=== PATIENT | male | born 1935 | race Caucasian/White ===

== ENCOUNTER → 2017-11-01 | Outpatient (CLI) | payer MEDICARE ==
--- NOTE | 2017-11-01 15:10 | US ---
EXAMINATION TYPE: US kidneys/renal and bladder DATE OF EXAM: 11/01/2017 COMPARISON: NONE CLINICAL HISTORY: R31.9 HEMATURIA. EXAM MEASUREMENTS: Right Kidney: 9.7 x 4.7 x 4.6 cm Left Kidney: 10.7 x 4.8 x 4.5 cm Right Kidney: No hydronephrosis or masses seen Left Kidney: No hydronephrosis or masses seen Bladder: wnl There is no evidence for hydronephrosis at this point in time. No nephrolithiasis is seen. No dano s are identified. The urinary bladder is anechoic. Bilateral ureteral jets are seen. IMPRESSION: No significant abnormality appreciated.
== END | disposition home or self-care (01) ==
LOC: RADUSWWP 14:05
PROVIDERS: ATTEND Internal Medicine
DX: R31.9 Hematuria, unspecified (principal)
CPT/HCPCS: 76770

== ENCOUNTER → 2018-05-08 | Outpatient (CLI) | payer MEDICARE ==
[~2018-05-08] MED LIST: REGADENOSON 0.4 MG/5 ML SYRINGE IV ONE
--- NOTE | 2018-05-08 11:15 | NM ---
EXAMINATION TYPE: NM stress lexiscan cardiolite DATE OF EXAM: 05/08/2018 COMPARISON: NONE HISTORY: Cardiomyopathy TECHNIQUE: After the intravenous administration of 10.1 mCi Tc 99m Sestamibi - Cardiolite resting SP ECT images acquired 45 minutes post injection. The patient received 0.4mg Lexiscan, 25.8 mCi Tc 99m Sestamibi - Stress images obtained [address] injection FINDINGS: Review of stress and rest SPECT images demonstrates no distinct perfusion abnormality. Gated analysi s shows normal wall motion with an estimated left ventricular ejection fraction of 56 %. IMPRESSION: No scintigraphic evidence for reversible ischemia.
--- NOTE | 2018-05-08 11:44 | EST ---
EXERCISE STRESS DATE OF SERVICE: 05/08/2018 AGE: 83 SEX: Male HT: 5'11" WT: 160 pounds PROTOCOL: Lexiscan Cardiolite STAGE: DURATION OF EXERCISE: HEART RATE REST: 49 BLOOD PRESSURE REST: 143/57 MAXIMUM HEART RATE ACHIEVED: 71 MAXIMUM BLOOD PRESSURE: 153/54 85% MPHR: 116 100% MPHR: 137 METS: INDICATIONS: Chest discomfort. CLINICAL INFORMATION: STRESS DATA: Pretesting physical examination showed heart rate of 49, pressure is 143/57 mmHg. Baseline EKG showed sinus mechanism with LBBB. A 0.4 mg of Lexiscan was given over 15 seconds per protocol. Max heart rate was 71 beats per minute and maximum pressure was 153/54 mmHg. Clinically, the patient did not have any symptoms of chest pain or discomfort and the EKG did not show any significant ST or T-wave abnormalities concerning for ischemia. CONCLUSION: 1. Nondiagnostic electrocardiogram stress testing in response to Lexiscan. 2. Please follow up on the Cardiolite portion on separate report from radiology department. MMODL / IJN: [id number] /
== END | disposition home or self-care (01) ==
LOC: RADNMMAIN 08:06
PROVIDERS: ATTEND Internal Medicine
DX: I42.9 Cardiomyopathy, unspecified (principal)
CPT/HCPCS: 93017; 78452; A9500; J2785

== ENCOUNTER → 2018-07-03 | Outpatient (CLI) | payer MEDICARE ==
[2018-07-03 15:10] LABS: Appearance,Urine Clear (Clear); Bilirubin,Urine Negative (Negative); Blood,Urine Negative (Negative); Color,Urine Yellow; Glucose,Urine (UA) Negative (Negative); HGB 12.6 gm/dL (13.0-17.5); Ketones,Urine Negative (Negative); Leukocyte Esterase,Urine Negative (Negative); MCH 31.8 pg (25.0-35.0); MCHC 32.3 g/dL (31.0-37.0); MCV 98.6 fL (80.0-100.0); Mean Platelet Volume 7.7; Nitrite,Urine Negative (Negative); Platelet Count 284 k/uL (150-450); Protein,Urine Negative (Negative); RBC 3.95 m/uL (4.30-5.90); RDW 12.7 % (11.5-15.5); Specific Gravity,Urine 1.012 (1.001-1.035); Urobilinogen,Urine <2.0 mg/dL (<2.0)
[2018-07-03 15:19] LABS: Albumin 4.3 g/dL (3.5-5.0); Calcium 9.6 mg/dL (8.4-10.2); Total Bilirubin 0.3 mg/dL (0.2-1.3); Total Protein 7.2 g/dL (6.3-8.2)
[2018-07-03 15:23] LABS: Partial Thromboplastin Time 23.4 sec (22.0-30.0)
== END ==
LOC: LABPAT 13:46
PROVIDERS: ATTEND Orthopaedic Surgery Sports Medicine
DX: Z01.818 Encounter for other preprocedural examination (principal); Z01.812 Encounter for preprocedural laboratory examination; Z79.01 Long term (current) use of anticoagulants
CPT/HCPCS: 36415; 80053; 81003; 85027; 85610; 85730; 87070; 93005

== ENCOUNTER 2018-07-27 10:44 | Inpatient (IN) | payer MEDICARE ==
[2018-07-07 16:29] VITALS: BMI 23.6
[~2018-07-27 10:44] MED LIST changes: +DEXAMETHASONE SOD PHOSPHATE 10 MG/ML 1 ML VIAL IV ONE; +HYDROmorphone 0.5 MG/0.5 ML SYRINGE IVP PRN; +MELOXICAM 7.5 MG TAB PO ONE; +ONDANSETRON 4 MG/2 ML VIAL IVP ONE; -REGADENOSON 0.4 MG/5 ML SYRINGE IV ONE; +ROPIVACAINE 246.25 MG, EPINEPHrine 0.5 MG, KETOROLAC 30 MG, cloNIDine HCL/PF 80 MCG, WA... MISCELLANE ONE; +TRANEXAMIC ACID 1,000 MG in SODIUM CHLORIDE 0.9% 50 ML IVPB ONE; +ceFAZolin IN SWFI 2 GM/20 ML SYRINGE IVP ONE; +fentaNYL (PF) 50 MCG/ML 2 ML AMP IV PRN
[2018-07-27] MEDS: LACTATED RINGERS 1,000 ML IV SCH ×3 (13:01→18:16)
[2018-07-27] MEDS ORDERED: ACETAMINOPHEN TAB 500 MG TAB PO ONE (13:15)
[2018-07-27] MEDS ORDERED: GLYCOPYRROLATE 0.2 MG/ML 2 ML VIAL ONE (13:49)
[2018-07-27] MEDS ORDERED: fentaNYL (PF) 50 MCG/ML 2 ML AMP ONE (13:49)
[2018-07-27] MEDS ORDERED: ePHEDrine SULFATE/0.9% NACL/PF 50 MG/5 ML SYRINGE IV ONE (13:49)
[2018-07-27] MEDS ORDERED: MORPHINE SULFATE (PF) 0.3 MG/0.3 ML SYR ONE (13:49)
[2018-07-27] MEDS ORDERED: ceFAZolin 3,000 MG in SODIUM CHLORIDE 0.9% IRRIGATIO 3,000 ML IRRIGATION ONE (14:22)
[2018-07-27] MEDS ORDERED: HYDROmorphone 1 MG/ML 1 ML SYRINGE IVP PRN ×3 (15:59)
[2018-07-27] MEDS ORDERED: TEMAZEPAM 15 MG CAP PO PRN (15:59)
[2018-07-27] MEDS ORDERED: ACETAMINOPHEN TAB 325 MG TAB PO PRN (15:59)
[2018-07-27] MEDS ORDERED: NALOXONE 0.4 MG/ML 1 ML VIAL IV PRN (15:59)
[2018-07-27] MEDS ORDERED: HYDROcodone/APAP 5-325MG 1 EACH TAB PO PRN (15:59)
[2018-07-27] MEDS ORDERED: DIAZEPAM 5 MG TAB PO PRN (15:59)
[2018-07-27] MEDS ORDERED: NA PHOS,M-B/NA PHOS,DI-BA 133 ML ENEMA RECTAL PRN (15:59)
[2018-07-27] MEDS ORDERED: BISACODYL 10 MG SUPP RECTAL PRN (15:59)
[2018-07-27] MEDS ORDERED: ONDANSETRON 4 MG/2 ML VIAL IVP PRN (15:59)
[2018-07-27] MEDS ORDERED: traMADol 50 MG TAB PO PRN (15:59)
[2018-07-27] MEDS ORDERED: HYDROcodone/APAP 10-325MG 1 EACH TAB PO PRN (15:59)
[2018-07-27] MEDS ORDERED: MAGNESIUM HYDROXIDE 2,400 MG/10 ML CUP PO PRN (15:59)
[2018-07-27] MEDS ORDERED: hydrOXYzine PAMOATE 25 MG CAP PO PRN (15:59)
[2018-07-27] MEDS ORDERED: HYDROcodone/APAP 7.5-325MG 1 EACH TAB PO PRN (15:59)
--- NOTE | 2018-07-27 16:29 | XR ---
EXAMINATION TYPE: XR knee limited RT DATE OF EXAM: 07/27/2018 COMPARISON: 02/18/2009 HISTORY: Postop knee replacement TECHNIQUE: 2 view right knee FINDINGS: Tibial and femoral components have been placed. Postsurgical changes are within the soft ti ssues. No acute fractures are evident. IMPRESSION: 1. No fracture post knee replacement.
[2018-07-27] MEDS: HYDROcodone/APAP 5-325MG 1 EACH TAB PO PRN (18:13)
[2018-07-27 18:19] VITALS: RESP 16; TEMP 97.8
[2018-07-27] MEDS ORDERED: SENNOSIDES-DOCUSATE SODIUM 1 EACH TAB PO SCH (21:00)
--- NOTE | 2018-07-27 21:19 | OP ---
OPERATIVE REPORT DATE OF PROCEDURE: 07/27/2018. SURGEON: Kayden Lockwood MD. CONDUIT CLEANER: JESSICA Rodríguez. PREOPERATIVE DIAGNOSIS: Right knee osteoarthrosis. POSTOPERATIVE DIAGNOSIS: Right knee osteoarthrosis. OPERATION: Right total knee arthroplasty. ANESTHESIA: Spinal with sedation. ESTIMATED BLOOD LOSS: 100 mL. TOURNIQUET TIME: 58 minutes at 250 mmHg. COMPLICATIONS: None apparent. DRAINS: None. DISPOSITION: Postanesthesia care unit. INDICATIONS: Tejinder is a very pleasant 83-year-old male with longstanding history of right knee pain. History and physical examination are consistent with advanced right knee osteoarthrosis. He has been through a fairly significant course of nonoperative management up to this point. Further treatment options were discussed and he decided to go for the right total knee arthroplasty. The risks of procedure were discussed in detail. These risks include, but are not limited to risk of infection, nerve damage, bleeding, pain, and a small risk of deep vein thrombosis which could lead to fatal pulmonary embolism. There is also risk of loosening of the implant which could require revision operation. The patient understands these risks. All of his questions were answered to his satisfaction. Appropriate informed consent was obtained. DESCRIPTION OF PROCEDURE: The patient identified in the preoperative holding area. Surgical sites marked by both the patient and myself. He was given 2 g of Ancef IV for prophylactic purposes. He was then transported to the operative suite. He was placed supine on the operative table. Spinal anesthetic was then administered and dosed per the anesthesia without apparent complication. Examination under anesthesia was then performed. The patient was 3-5 degrees shy of full extension. He had 95 degrees of flexion of the medial collateral ligament. Lateral collateral ligament and posterior cruciate ligaments were stable. Tourniquet was then placed high on the right upper thigh well-padded in preparation for surgery. The patient's right lower extremity was then prepped and draped in usual sterile fashion. Standard surgical pause undertaken to ensure that we were operating the correct site and that appropriate preoperative antibiotics were given. All staff were in agreement we proceeded. The outlines of the patella were marked surgical pen. A planned 12 cm vertical incision centered over the patella was marked surgical pen. Leg was then exsanguinated with an Esmarch dressing. The knee was then flexed and the tourniquet was inflated to 250 mmHg. The total tourniquet time for the procedure was 58 minutes Incision was then made with a 10 blade scalpel. Dissection was carried down sharply overlying fascia. Great care was taken to minimize the skin flaps. The knee was then exposed using a standard medial parapatellar approach. A small cuff of quadriceps tendon was then left for suturing. He was in a bit of valgus preoperatively. A very minimal medial release was made. This was done just for a placement of the medial retractors. The medial meniscus was then excised as well. The lateral meniscus was also released anteriorly. Leg was then externally rotated. The patella was everted. The knee was flexed. The retractors were then placed to protect the collateral ligaments. I then proceeded to remove the infrapatellar fat pad. This was excised sharply tangentially with fibers of the patellar tendon. I then proceeded to remove peripheral osteophytes. This is done with a rongeur. I then proceeded with distal femoral resection. He did have a flexion contracture. I planned to take an extra 2 mm of bone off of the distal femur. A planned 11 mm resection was then done. The femoral canal was then entered in the midline of the femur approximately 10 mm anterior and to the origin of the posterior cruciate ligament. The lois was then advanced down the center of the femur and placed intramedullary. Based on preoperative radiographs, the angle between the anatomic and mechanical axis of the femur was approximately 4-5 degrees. The valgus angle the distal femoral cutting guide was then set at 4 degrees for the right knee. The distal femoral cutting guide was then advanced over the intramedullary lois. This was seated firmly against the femur. I then as mentioned planned to take 11 mm off the distal femur. The cutting block was then secured onto the femur with pins. The jig was then removed. The distal femoral cut was made through the slot of the block. The pins then were then removed. The distal femoral cutting block was removed. The accuracy of the distal femoral cuts was checked with 2 flat bars. I then proceed to femoral sizing. Posterior referencing sizing guide was held firmly against the resected distal surface of the femur. The posterior condyles were resting on the posterior plane of the guide. The sizing stylus was then placed onto the anterior femur. The size was measured as a size 10. I then assessed for femoral rotation. Plan was for 3 degrees of external rotation. Three degrees external rotation was placed onto the jig. These holes were then marked. I then confirmed the rotation by 3 separate methods. This was done using epicondylar axis as well as [place] line and posterior referencing. It was deemed that the external rotation was proper. I then went forward with placing the femoral cutting block. This placed over the previously placed pin holes. The Boyd wing was then placed onto the anterior slots to ensure that we would not notch the anterior femur with the anterior femoral cut. I then proceed with the anterior femoral cut. This was flush with the anterior cortex of the femur. Posterior cuts were then made followed by the anterior chamfer cut, then the posterior chamfer cut. The cutting block was then removed. Throughout the resection, the collateral ligaments were protected with retractors. I then placed a trial size 10 femur. It fit very nicely medial to lateral and fit flush with the distal end of the femur. The drill holes were then made. I then proceeded with the tibial cut. I planned for cruciate retaining knee. The guide was placed and set for varus valgus and for slope. The height was set for approximate 2 mm resection from the lateral tibial plateau which was the lower side. I was happy with the alignment and the amount of resection. The cutting block was then pinned to the proximal tibia. The alignment lois was removed. The proximal tibia was resected with a reciprocating saw. Again this was done with retractors protecting the collateral ligaments as well as the posterior cruciate ligament. I then proceeded to evaluate the flexion and extension gaps. A 10 mm block was placed. The flexion-extension gaps were equal. I then proceeded with resection of posterior osteophytes. Very extensive posterior osteophytes. This is done using a curved osteotome. This resected the posterior osteophytes and posterior capsule stripping was also done off the posterior aspect of the femur at this time. The osteophytes were then removed. I then proceeded with resection of the patella. The thickness of the patella was measured using a caliper. The thickness was 22 mm. The thickness of the anticipated patellar dome was taken into account. Resection was then performed and confirmed to be equal in 4 quadrants using a caliper. Approximately 14 mm of bone remained after the resection. A 32 x 8.5 mm standard patellar trial was then placed. The holes were drilled. The trial was then placed. I then proceed with sizing tibial plate. A size F tibial plate fit very nicely. I then placed the trial femur the tibial tray and patellar button. A 10 mm trial tibial insert was also placed. The components fit very nicely. He had full extension and flexion. The extension and flexion gaps were equal and stable to both varus and valgus stress. The patella tracked appropriately. The tibial tray rotation was then marked with a Bovie. This was externally rotated properly. I then proceeded with tibial preparation. I first drilled the femoral holes removed femoral component. The tibial tray was then set for proper external rotation as well as mediolateral placement onto the tibia. It was then pinned into place. I then proceed with punching the keel. I then decided to proceed with cementing of all of our components. The knee was thoroughly irrigated with sterile saline solution via pulse lavage. The lateral geniculate artery was identified and cauterized. All blood was removed from the bone of the tibia, the femur and the patella via pulse lavage. I then proceed with cementing. Two packs of antibiotic bone cement prepared on the back table by the neurosurgical nurse. I then put some to proceed with cementing the tibia first. The cement was impacted into the keel as well as deeply seated into the bone. A second coat of cement was then placed. The tibia was then impacted into place. Excess cement was removed with [place]'s and Joker's. I then proceed with cementing the femoral component. The femoral component was also cemented using standard technique. Excess cement was removed. A 10 mm trial insert was then placed into the knee and was brought into full extension with a constant axial load placed until the cement had hardened. The patellar component was then cemented. This was held firmly with a compressive device until the cement had dried. When the cement had dried, the knee was taken out of extension. All excess cement was removed from around the prosthesis. I then trialed the knee with an 10 mm insert. I then proceeded to trial with an 11 mm insert. The flexion-extension gaps felt appropriate. The knee was stable with an 11 mm insert. It came into full extension. I decided to go forward with an 11 mm cross-linked cruciate-retaining tibial insert. Polyethylene was then placed onto the tibial tray and locked into place. The knee was then reduced. The knee was again further irrigated with sterile saline solution with antibiotic added. The tourniquet was then deflated. The total tourniquet time for the procedure was 58 minutes at 250 mmHg. Final components were Gerry Persona size 10 cruciate-retaining femoral component, a size F tibial tray and 11 mm cruciate-retaining polyethylene insert and a 32 x 8.5 mm patella. I then proceeded with closure. Again, the knee was thoroughly irrigated. The quadriceps tendon and the medial retinaculum were reapproximated with #2 Ethibond suture. The extensor mechanism was then closed with a running #2 Quill suture. Subcutaneous tissues were then closed with 2 Vicryl suture. The skin was closed with running 3-0 Quill suture. Dermabond was applied to the incision. Sterile compressive dressing was then applied. All sponge and needle counts were deemed correct prior to closure. The patient tolerated the procedure without apparent complication. He was transferred recovery room in stable condition. MMODL / IJN: [id number] /
[2018-07-27] MEDS: ASPIRIN 325 MG TAB PO SCH (21:39)
[2018-07-27] MEDS: ceFAZolin IN SWFI 2 GM/20 ML SYRINGE IVP SCH (21:40)
[2018-07-28] MEDS: HYDROcodone/APAP 5-325MG 1 EACH TAB PO PRN (04:48)
[2018-07-28] MEDS: ceFAZolin IN SWFI 2 GM/20 ML SYRINGE IVP SCH (05:06)
[2018-07-28] MEDS: LACTATED RINGERS 1,000 ML IV SCH (07:03)
--- NOTE | 2018-07-28 07:11 | P.DS ---
Providers Date of admission: 07/27/18 12:18 Expected date of discharge: 07/28/18 Attending physician: Kayden Lockwood Consults: 07/27/18 15:59 Consult Physician Routine Consulting Provider: Laurent Burns Consult Reason/Comments: post op medical management Do you want consulting provider notified?: Yes Primary care physician: Laurent Burns - Discharge Diagnosis(es) (1) Osteoarthritis, knee Patient was admitted to the OR on 07/27/2018 to undergo a right total knee arthroplasty. He had failed conservative measures as an outpatient and desired to proceed with elective surgery after given informed consent. He underwent the above procedure which he tolerated well without complication. Postoperative hospital course has remained without complication. On day of discharge he is afebrile, vital signs stable, labs within acceptable ranges, tolerating by mouth meds and diet, voiding without difficulty, positive flatus, denies abdominal pain or calf pain, pain is controlled on oral pain medication and has no new complaints. Wound is benign, neurovascular status is intact, calf is soft and nontender, abdomen soft and nontender. Review of systems is negative for numbness, tingling, fever, chills, chest pain, shortness breath, nausea, vomiting, dizziness, headaches, slurred speech or other. Current Visit: Yes Status: Acute (2) Hypertension Current Visit: Yes Status: Acute Procedures: Right TKA Patient Condition at Discharge: Good Plan - Discharge Summary Discharge Rx Participant: Yes New Discharge Prescriptions: New Aspirin 325 mg PO BID #60 tab Docusate [Colace] 100 mg PO BID #60 capsule HYDROcodone/APAP 5-325MG [Erin 5-325] 1 tab PO Q4HR PRN #42 tab PRN Reason: Pain No Action amLODIPine [Norvasc] 2.5 mg PO BID Multivitamins, Thera [Multivitamin (formulary)] 1 tab PO DAILY Aspirin 325 mg PO DAILY Metoprolol Tartrate [Lopressor] 25 mg PO BID Enalapril Maleate [Vasotec] 20 mg PO BID Torsemide [Demadex] 10 mg PO MOWEFRSA Ergocalciferol [Vitamin D2] 50,000 unit PO Q7D Potassium Chloride [K-Tab ER] 10 meq PO MOFR Acetaminophen [Tylenol Extra Strength] 1,000 mg PO Q6H PRN PRN Reason: Pain Aricept 23mg 23 mg PO DAILY Discharge Medication List Acetaminophen [Tylenol Extra Strength] 1,000 mg PO Q6H PRN 07/07/18 [History] Aspirin 325 mg PO DAILY 07/07/18 [History] Enalapril Maleate [Vasotec] 20 mg PO BID 07/07/18 [History] Ergocalciferol [Vitamin D2] 50,000 unit PO Q7D 07/07/18 [History] Metoprolol Tartrate [Lopressor] 25 mg PO BID 07/07/18 [History] Multivitamins, Thera [Multivitamin (formulary)] 1 tab PO DAILY 07/07/18 [History ] Potassium Chloride [K-Tab ER] 10 meq PO MOFR 07/07/18 [History] Torsemide [Demadex] 10 mg PO MOWEFRSA 07/07/18 [History] amLODIPine [Norvasc] 2.5 mg PO BID 07/07/18 [History] Aricept 23mg 23 mg PO DAILY 07/27/18 [History] Aspirin 325 mg PO BID #60 tab 07/28/18 [Rx] Docusate [Colace] 100 mg PO BID #60 capsule 07/28/18 [Rx] HYDROcodone/APAP 5-325MG [Erin 5-325] 1 tab PO Q4HR PRN #42 tab 07/28/18 [Rx] Follow up Appointment(s)/Referral(s): Kayden Lockwood MD [STAFF PHYSICIAN] - 1 Week Activity/Diet/Wound Care/Special Instructions: WBAT Take meds as directed F/U with Dr. Lockwood in office Keep wound clean and dry may shower in 72 hrs if no bleeding Discharge Disposition: HOME WITH HOME HEALTH SERVICES
[2018-07-28 07:21] LABS: Basophils % (A) 0 %; Eosinophils % (A) 0 %; HGB 10.8 gm/dL (13.0-17.5); Lymphocytes # (A) 0.8 k/uL (1.0-4.8); Lymphocytes % (A) 5 %; MCH 32.1 pg (25.0-35.0); MCHC 31.8 g/dL (31.0-37.0); Mean Platelet Volume 7.5; Monocytes % (A) 6 %; Neutrophils # (A) 13.7 k/uL (1.3-7.7); Neutrophils % (A) 88 %; Platelet Count 235 k/uL (150-450); RBC 3.37 m/uL (4.30-5.90); RDW 12.5 % (11.5-15.5); WBC 15.7 k/uL (3.8-10.6)
[2018-07-28 08:12] VITALS: BP 119/56; PULSE 79
[2018-07-28] MEDS ORDERED: POTASSIUM CHLORIDE ER 10 MEQ TAB.ER.PRT PO SCH (09:00)
[2018-07-28] MEDS ORDERED: METOPROLOL TARTRATE 25 MG TAB PO SCH (09:00)
[2018-07-28] MEDS ORDERED: LISINOPRIL 20 MG TAB PO SCH (09:00)
[2018-07-28] MEDS ORDERED: TORSEMIDE 20 MG TAB PO SCH (09:00)
[2018-07-28] MEDS ORDERED: DONEPEZIL 10 MG TAB PO SCH (09:00)
[2018-07-28] MEDS ORDERED: amLODIPine 2.5 MG TAB PO SCH (09:00)
[2018-07-28] MEDS: ASPIRIN 325 MG TAB PO SCH (09:01)
[2018-07-28] MEDS ORDERED: TAMSULOSIN 0.4 MG CAP.ER.24H PO SCH (11:00)
[2018-07-28] MEDS ORDERED: MULTIVITAMINS, THERA 1 EACH TAB PO SCH (12:00)
[2018-07-28] MEDS ORDERED: HYDROmorphone 2 MG TAB PO PRN ×3 (12:03→12:04)
--- NOTE | 2018-07-28 14:31 | P.CONS ---
History of Present Illness - Reason for Consult Consult date: 07/28/18 Medical management - History of Present Illness This is an 83-year-old male patient of Dr. Burns with past medical history of glaucoma, hypertension, lower extremity edema, short-term memory loss with vascular dementia, osteoarthritis. Patient has been brought in under the care of Dr. Lockwood status post right total knee arthroplasty. Patient has had no nausea, vomiting, lightheadedness, dizziness, chest pain or shortness of breath. Patient has had urinary retention and required straight cath to times of the second one being 300 mL removed. The patient requires a third straight cath, Saha catheter to be placed by nursing. Patient will be started on Flomax. Patient does have a sitter at the bedside. Review of Systems All systems: negative Constitutional: Denies chills, Denies fever Eyes: denies blurred vision, denies pain Ears, nose, mouth and throat: Denies headache, Denies sore throat Cardiovascular: Denies chest pain, Denies shortness of breath Respiratory: Denies cough Gastrointestinal: Denies abdominal pain, Denies diarrhea, Denies nausea, Denies vomiting Musculoskeletal: Denies myalgias Integumentary: Denies pruritus, Denies rash Neurological: Denies numbness, Denies weakness Psychiatric: Denies anxiety, Denies depression Endocrine: Denies fatigue, Denies weight change Past Medical History Past Medical History: Eye Disorder, Hypertension, Memory Impairment, Osteoarthritis (OA) Additional Past Medical History / Comment(s): HX GLAUCOMA. HX EDEMA ANKLES. SHORT TERM MEMORY LOSS, "VASCULAR DEMENTIA, PER DRRoyal" History of Any Multi-Drug Resistant Organisms: None Reported Additional Past Surgical History / Comment(s): NASAL PROCEDURE. CATARACTS STANISLAW. GLAUCOMA SURGERY ST[place]ISLAW Past Anesthesia/Blood Transfusion Reactions: No Reported Reaction Past Psychological History: No Psychological Hx Reported Smoking Status: Former smoker Past Alcohol Use History: Daily Additional Past Alcohol Use History / Comment(s): SMOKED IN PAST, QUIT 1987 OR PRIOR. COUPLE BEERS RARELY. PATIENT WAS ALONE AT [facility]. Past Drug Use History: None Reported - Past Family History Father Family Medical History: Cancer Additional Family Medical History / Comment(s): PROSTATE Medications and Allergies Home Medications Medication Instructions Recorded Confirmed Type Acetaminophen [Tylenol Extra 1,000 mg PO Q6H PRN 07/07/18 07/27/18 History Strength] Enalapril Maleate [Vasotec] 20 mg PO BID 07/07/18 07/27/18 History Ergocalciferol [Vitamin D2 50,000 unit PO Q7D 07/07/18 07/27/18 History (DRISDOL)] Metoprolol Tartrate [Lopressor] 25 mg PO BID 07/07/18 07/27/18 History Multivitamins, Thera [Multivitamin 1 tab PO DAILY 07/07/18 07/27/18 History (formulary)] Potassium Chloride [K-Tab ER] 10 meq PO MOFR 07/07/18 07/27/18 History Torsemide [Demadex] 10 mg PO MOWEFRSA 07/07/18 07/27/18 History amLODIPine [Norvasc] 2.5 mg PO BID 07/07/18 07/27/18 History Aricept 23mg 23 mg PO DAILY 07/27/18 07/27/18 History Acetaminophen Tab [Tylenol] 650 mg PO Q4HR PRN tab 07/28/18 Rx Aspirin 325 mg PO BID #60 tab 07/28/18 Rx Docusate [Colace] 100 mg PO BID #60 capsule 07/28/18 Rx HYDROcodone/APAP 5-325MG [[place] 1 tab PO Q4HR PRN #42 tab 07/28/18 Rx 5-325] Tamsulosin [Flomax] 0.4 mg PO [id number] cap.er.24h 07/28/18 Rx Allergies Allergy/AdvReac Type Severity Reaction Status Date / Time Sulfa (Sulfonamide Allergy Unknown Verified 07/27/18 17:59 Antibiotics) Childhood Physical Exam Vitals: Vital Signs Temp Pulse Pulse Resp BP Pulse Ox 07/28/18 07:58 79 16 119/56 98 07/27/18 19:00 72 128/76 07/27/18 18:45 48 L 106/52 07/27/18 18:30 54 L 110/51 07/27/18 18:15 49 L 107/61 07/27/18 18:00 60 80/45 07/27/18 17:45 72 102/54 07/27/18 17:30 62 101/55 07/27/18 17:15 97.8 F 52 L 16 116/53 97 07/27/18 16:45 58 L 18 98/51 95 07/27/18 16:30 51 L 18 98/50 94 L 07/27/18 16:15 56 L 18 101/58 97 07/27/18 15:57 96.8 F L 74 16 114/56 100 Intake and Output 07/27/18 07/28/18 07/28/18 22:59 06:59 14:59 Intake Total 320 250 578 Output Total 100 1100 784 Balance 220 -850 -206 Intake: IV 200 Intake, IV Titration 250 Amount Lactated Ringers 1,000 ml 250 @ 75 mls/hr IV .[id number] [facility] Rx#:[id number] Oral 120 578 Output: Urine 1100 300 Straight 300 Post Void Residual 484 Estimated Blood Loss 100 Other: Weight 72.575 kg Gen: This is a 83-year-old male. He is sitting up in bed and appears to be comfortable and in no acute distress. HEENT: Head is atraumatic, normocephalic. Pupils equal, round. Sclerae is anicteric. NECK: Supple. No JVD. No lymphadenopathy. No thyromegaly. LUNGS: Clear to auscultation. No wheezes or rhonchi. No intercostal retractions. HEART: Regular rate and rhythm. No murmur. ABDOMEN: Soft. Bowel sounds are present. No masses. No tenderness. EXTREMITIES: No pedal edema. No calf tenderness. Small dressing in place to the right knee. No breakthrough bleeding or drainage. NEUROLOGICAL: Patient is awake, alert and oriented x1, pleasantly confused. Cranial nerves 2 through 12 are grossly intact. Results CBC & Chem 7: 07/28/18 06:22 Labs: Abnormal Lab Results - Last 24 Hours (Table) 07/28/18 Range/Units 06:22 WBC 15.7 H (3.8-10.6) k/uL RBC 3.37 L (4.30-5.90) m/uL Hgb 10.8 L (13.0-17.5) gm/dL Hct 34.0 L (39.0-53.0) % MCV 101.0 H (80.0-100.0) fL Neutrophils # 13.7 H (1.3-7.7) k/uL Lymphocytes # 0.8 L (1.0-4.8) k/uL Assessment and Plan Plan: 1. Osteoarthritis status post right total knee arthroplasty. Continue PT, OT, pain control per orthopedics. Patient is on aspirin for DVT prophylaxis. 2. Anemia, most likely vitamin B12 deficiency. Not worked up in the hospital. Patient will be placed on ferrous sulfate one daily for 30 days. 3. Urinary retention requiring straight cath. Start Flomax 0.4 mg daily. 4. Hypertension. Continue Lopressor 25 mg twice daily, Demadex 10 mg Tuesday, potassium. 5. Glaucoma, stable. 6. Vascular dementia, stable. Discharge plan: [place] under the care of Dr. John Impression and plan of care have been directed as dictated by the signing physician. Tamara Mendez nurse practitioner acting as scribe for signing physician.
== END 2018-07-28 14:56 | DRG 470 ==
LOC: 2ORMAIN 12:18 → 4SSUR 16:46
PROVIDERS: ADMIT Orthopaedic Surgery Sports Medicine; ATTEND Orthopaedic Surgery Sports Medicine
PROC: 0SRC0J9 Replacement of Right Knee Joint with Synthetic Substitute, Cemented, Open Approach (ICD-10-PCS; principal; 2018-07-27 14:10)
DX: M17.11 Unilateral primary osteoarthritis, right knee (principal); H40.9 Unspecified glaucoma; F01.50 Vascular dementia, unspecified severity, without behavioral disturbance, psychotic disturbance, mood disturbance, and anxiety; I12.9 Hypertensive chronic kidney disease with stage 1 through stage 4 chronic kidney disease, or unspecified chronic kidney disease; N18.2 Chronic kidney disease, stage 2 (mild); D51.9 Vitamin B12 deficiency anemia, unspecified; R33.9 Retention of urine, unspecified; Z79.82 Long term (current) use of aspirin; Z79.899 Other long term (current) drug therapy; Z87.891 Personal history of nicotine dependence; Z88.2 Allergy status to sulfonamides; Z98.42 Cataract extraction status, left eye; Z98.41 Cataract extraction status, right eye
CPT/HCPCS: 85025; 88300

== ENCOUNTER 2018-10-10 11:17 | Inpatient (IN) | payer MEDICARE ==
--- NOTE | 2018-10-10 12:06 | ED ---
General Adult HPI - General Chief complaint: Weakness Stated complaint: confusion Time Seen by Provider: 10/10/18 11:20 Source: patient, family, RN notes reviewed Mode of arrival: wheelchair Limitations: altered mental status - History of Present Illness Initial comments: This is an 83-year-old male who presents emergency Department with family. They stated that the staff there thought he was more confused than normal and he was weaker. Did not notice focal weakness he just seemed weaker altogether on both legs. Patient himself has no complaints. Patient has some dementia underlying but the family states he does not seem to be as quickly responsive as he normally is. According to the facility he does have a low-grade fever but no exact temperature was given. Patient has not had any recent cough or shortness of breath. Patient has no abdominal pain. Patient has no nausea or vomiting. Patient denies headache patient denies numbness weakness. Patient denies lightheadedness or dizziness. Patient has a touch more swelling to both legs. Patient denies any chest pain patient denies any abdominal pain. Patient denies any recent trauma or injury - Related Data Home Medications Medication Instructions Recorded Confirmed Acetaminophen [Tylenol Extra 1,000 mg PO BID 07/07/18 10/10/18 Strength] Enalapril Maleate [Vasotec] 20 mg PO BID 07/07/18 10/10/18 Ergocalciferol [Vitamin D2 50,000 unit PO Q14D 07/07/18 10/10/18 (DRISDOL)] Metoprolol Tartrate [Lopressor] 25 mg PO BID 07/07/18 10/10/18 Multivitamins, Thera [Multivitamin 1 tab PO DAILY 07/07/18 10/10/18 (formulary)] Potassium Chloride [K-Tab ER] 10 meq PO MOFR 07/07/18 10/10/18 Torsemide [Demadex] 10 mg PO [id number] 07/07/18 10/10/18 amLODIPine [Norvasc] 2.5 mg PO BID 07/07/18 10/10/18 Aricept 23mg 23 mg PO HS 07/27/18 10/10/18 Aspirin 325 mg PO HS 10/10/18 10/10/18 Ferrous Sulfate [Feosol] 325 mg PO BID 10/10/18 10/10/18 Loratadine [Claritin] 10 mg PO DAILY 10/10/18 10/10/18 Previous Rx's Medication Instructions Recorded Docusate [Colace] 100 mg PO BID #60 capsule 07/28/18 Tamsulosin [Flomax] 0.4 mg PO [id number] cap.er.24h 07/28/18 Allergies Allergy/AdvReac Type Severity Reaction Status Date / Time Sulfa (Sulfonamide Allergy Unknown Verified 10/10/18 11:44 Antibiotics) Childhood Review of Systems ROS Statement: Those systems with pertinent positive or pertinent negative responses have been documented in the HPI. ROS Other: All systems not noted in ROS Statement are negative. Past Medical History Past Medical History: Eye Disorder, Hypertension, Memory Impairment, Osteoarthritis (OA) Additional Past Medical History / Comment(s): HX GLAUCOMA. HX EDEMA ANKLES. SHORT TERM MEMORY LOSS, "VASCULAR DEMENTIA, PER " History of Any Multi-Drug Resistant Organisms: None Reported Additional Past Surgical History / Comment(s): NASAL PROCEDURE. CATARACTS STANISLAW. GLAUCOMA SURGERY STANISLAW Past Anesthesia/Blood Transfusion Reactions: No Reported Reaction Past Psychological History: No Psychological Hx Reported Smoking Status: Former smoker Past Alcohol Use History: Daily Past Drug Use History: None Reported - Past Family History Father Family Medical History: Cancer Additional Family Medical History / Comment(s): PROSTATE General Exam - General Exam Comments Initial Comments: GENERAL: Patient is well-developed and well-nourished. Patient is nontoxic and well- hydrated and is in no acute distress. Patient does seem very tired but is arousable and answers some basic questions accurately and follows a sick directions accurately. Family states he is slower response than normal. ENT: Neck is soft and supple. No significant lymphadenopathy is noted. Oropharynx is clear. Moist mucous membranes. Neck has full range of motion without eliciting any pain. EYES: The sclera were anicteric and conjunctiva were pink and moist. Extraocular movements were intact and pupils were equal round and reactive to light. Eyelids were unremarkable. PULMONARY: Unlabored respirations. Good breath sounds bilaterally. No audible rales rhonchi or wheezing was noted. CARDIOVASCULAR: There is a regular rate and rhythm without any murmurs gallops or rubs. ABDOMEN: Soft and nontender with normal bowel sounds. No palpable organomegaly was noted. There is no palpable pulsatile mass. SKIN: Skin is clear with no lesions or rashes and otherwise unremarkable. NEUROLOGIC: Patient is alert and oriented 1. Cranial nerves II through XII are grossly intact. Motor and sensory are also intact. Normal speech, volume and content. Symmetrical smile. MUSCULOSKELETAL: Normal extremities with adequate strength and full range of motion. LYMPHATICS: No significant lymphadenopathy is noted PSYCHIATRIC: Normal psychiatric evaluation. Limitations: altered mental status Course Vital Signs 10/10/18 10/10/18 10/10/18 11:22 11:35 11:40 Temperature 99.1 F 99.4 F Pulse Rate 60 Respiratory 18 Rate Blood Pressure 114/58 107/51 O2 Sat by Pulse 99 96 96 Oximetry 10/10/18 10/10/18 10/10/18 11:50 12:00 12:10 Temperature Pulse Rate Respiratory Rate Blood Pressure 107/51 107/51 99/47 O2 Sat by Pulse 97 94 L 95 Oximetry 10/10/18 10/10/18 10/10/18 12:20 12:30 12:40 Temperature Pulse Rate Respiratory Rate Blood Pressure 99/47 99/47 92/47 O2 Sat by Pulse 96 60 L 95 Oximetry Medical Decision Making - Medical Decision Making EKG shows sinus bradycardia 56 bpm NV interval 280 QRSs 152 QT interval 454 QTC is 438. Patient's EKG shows a left bundle branch block. Chest x-ray shows no acute abnormality. I started the patient on Tamiflu emergency department for the influenza Spoke with Dr. Valenzuela she agreed to admit the patient admitted the patient I wrote admitting orders. - Lab Data Result diagrams: 10/10/18 12:24 10/10/18 12:24 Lab Results 10/10/18 10/10/18 10/10/18 Range/Units 12:24 12:24 12:24 WBC 7.4 (3.8-10.6) k/uL RBC 3.65 L (4.30-5.90) m/uL Hgb 11.3 L (13.0-17.5) gm/dL Hct 35.6 L (39.0-53.0) % MCV 97.7 (80.0-100.0) fL MCH 31.1 (25.0-35.0) pg MCHC 31.8 (31.0-37.0) g/dL RDW 13.1 (11.5-15.5) % Plt Count 255 (150-450) k/uL Neutrophils % 87 % Lymphocytes % 5 % Monocytes % 6 % Eosinophils % 0 % Basophils % 0 % Neutrophils # 6.5 (1.3-7.7) k/uL Lymphocytes # 0.4 L (1.0-4.8) k/uL Monocytes # 0.5 (0-1.0) k/uL Eosinophils # 0.0 (0-0.7) k/uL Basophils # 0.0 (0-0.2) k/uL PT (9.0-12.0) sec INR (<1.2) APTT (22.0-30.0) sec Sodium 142 (137-145) mmol/L Potassium 5.3 H (3.5-5.1) mmol/L Chloride 111 H (98-107) mmol/L Carbon Dioxide 23 (22-30) mmol/L Anion Gap 8 mmol/L BUN 37 H (9-20) mg/dL Creatinine 1.33 H (0.66-1.25) mg/dL Est GFR (CKD-EPI)AfAm 57 (>60 ml/min/1.73 sqM) Est GFR (CKD-EPI)NonAf 49 (>60 ml/min/1.73 sqM) Glucose 115 H (74-99) mg/dL Plasma Lactic Acid Renny 1.4 (0.7-2.0) mmol/L Calcium 9.5 (8.4-10.2) mg/dL Total Bilirubin 0.3 (0.2-1.3) mg/dL AST 36 (17-59) U/L ALT 28 (21-72) U/L Alkaline Phosphatase 52 (38-126) U/L Troponin I (0.000-0.034) ng/mL Total Protein 6.7 (6.3-8.2) g/dL Albumin 4.0 (3.5-5.0) g/dL Urine Color Urine Appearance (Clear) Urine pH (5.0-8.0) Ur Specific [place] (1.001-1.035) Urine Protein (Negative) Urine Glucose (UA) (Negative) Urine Ketones (Negative) Urine Blood (Negative) Urine Nitrite (Negative) Urine Bilirubin (Negative) Urine Urobilinogen (<2.0) mg/dL Ur Leukocyte Esterase (Negative) Urine WBC (0-5) /hpf Hyaline Casts (0-2) /lpf Influenza Type A RNA (Not Detectd) Influenza Type B (PCR) (Not Detectd) 10/10/18 10/10/18 10/10/18 Range/Units 12:24 12:24 12:35 WBC (3.8-10.6) k/uL RBC (4.30-5.90) m/uL Hgb (13.0-17.5) gm/dL Hct (39.0-53.0) % MCV (80.0-100.0) fL MCH (25.0-35.0) pg MCHC (31.0-37.0) g/dL RDW (11.5-15.5) % Plt Count (150-450) k/uL Neutrophils % % Lymphocytes % % Monocytes % % Eosinophils % % Basophils % % Neutrophils # (1.3-7.7) k/uL Lymphocytes # (1.0-4.8) k/uL Monocytes # (0-1.0) k/uL Eosinophils # (0-0.7) k/uL Basophils # (0-0.2) k/uL PT 10.0 (9.0-12.0) sec INR 0.9 (<1.2) APTT 22.5 (22.0-30.0) sec Sodium (137-145) mmol/L Potassium (3.5-5.1) mmol/L Chloride (98-107) mmol/L Carbon Dioxide (22-30) mmol/L Anion Gap mmol/L BUN (9-20) mg/dL Creatinine (0.66-1.25) mg/dL Est GFR (CKD-EPI)AfAm (>60 ml/min/1.73 sqM) Est GFR (CKD-EPI)NonAf (>60 ml/min/1.73 sqM) Glucose (74-99) mg/dL Plasma Lactic Acid Renny (0.7-2.0) mmol/L Calcium (8.4-10.2) mg/dL Total Bilirubin (0.2-1.3) mg/dL AST (17-59) U/L ALT (21-72) U/L Alkaline Phosphatase (38-126) U/L Troponin I 0.105 H* (0.000-0.034) ng/mL Total Protein (6.3-8.2) g/dL Albumin (3.5-5.0) g/dL Urine Color Urine Appearance (Clear) Urine pH (5.0-8.0) Ur Specific [place] (1.001-1.035) Urine Protein (Negative) Urine Glucose (UA) (Negative) Urine Ketones (Negative) Urine Blood (Negative) Urine Nitrite (Negative) Urine Bilirubin (Negative) Urine Urobilinogen (<2.0) mg/dL Ur Leukocyte Esterase (Negative) Urine WBC (0-5) /hpf Hyaline Casts (0-2) /lpf Influenza Type A RNA Detected H (Not Detectd) Influenza Type B (PCR) Not Detected (Not Detectd) 10/10/18 Range/Units 16:00 WBC (3.8-10.6) k/uL RBC (4.30-5.90) m/uL Hgb (13.0-17.5) gm/dL Hct (39.0-53.0) % MCV (80.0-100.0) fL MCH (25.0-35.0) pg MCHC (31.0-37.0) g/dL RDW (11.5-15.5) % Plt Count (150-450) k/uL Neutrophils % % Lymphocytes % % Monocytes % % Eosinophils % % Basophils % % Neutrophils # (1.3-7.7) k/uL Lymphocytes # (1.0-4.8) k/uL Monocytes # (0-1.0) k/uL Eosinophils # (0-0.7) k/uL Basophils # (0-0.2) k/uL PT (9.0-12.0) sec INR (<1.2) APTT (22.0-30.0) sec Sodium (137-145) mmol/L Potassium (3.5-5.1) mmol/L Chloride (98-107) mmol/L Carbon Dioxide (22-30) mmol/L Anion Gap mmol/L BUN (9-20) mg/dL Creatinine (0.66-1.25) mg/dL Est GFR (CKD-EPI)AfAm (>60 ml/min/1.73 sqM) Est GFR (CKD-EPI)NonAf (>60 ml/min/1.73 sqM) Glucose (74-99) mg/dL Plasma Lactic Acid Renny (0.7-2.0) mmol/L Calcium (8.4-10.2) mg/dL Total Bilirubin (0.2-1.3) mg/dL AST (17-59) U/L ALT (21-72) U/L Alkaline Phosphatase (38-126) U/L Troponin I (0.000-0.034) ng/mL Total Protein (6.3-8.2) g/dL Albumin (3.5-5.0) g/dL Urine Color Yellow Urine Appearance Clear (Clear) Urine pH 5.0 (5.0-8.0) Ur Specific [place] 1.015 (1.001-1.035) Urine Protein Trace H (Negative) Urine Glucose (UA) Negative (Negative) Urine Ketones Negative (Negative) Urine Blood Small H (Negative) Urine Nitrite Negative (Negative) Urine Bilirubin Negative (Negative) Urine Urobilinogen <2.0 (<2.0) mg/dL Ur Leukocyte Esterase Negative (Negative) Urine WBC <1 (0-5) /hpf Hyaline Casts 12 H (0-2) /lpf Influenza Type A RNA (Not Detectd) Influenza Type B (PCR) (Not Detectd) Disposition Clinical Impression: Altered mental status, Influenza A Disposition: ADMITTED IP TO THIS [facility] Time of Disposition: 16:25
[2018-10-10 12:48] LABS: Basophils % (A) 0 %; Eosinophils % (A) 0 %; HCT 35.6 % (39.0-53.0); HGB 11.3 gm/dL (13.0-17.5); Lymphocytes # (A) 0.4 k/uL (1.0-4.8); Lymphocytes % (A) 5 %; MCH 31.1 pg (25.0-35.0); MCHC 31.8 g/dL (31.0-37.0); MCV 97.7 fL (80.0-100.0); Mean Platelet Volume 7.6; Monocytes # (A) 0.5 k/uL (0-1.0); Monocytes % (A) 6 %; Neutrophils # (A) 6.5 k/uL (1.3-7.7); Neutrophils % (A) 87 %; Platelet Count 255 k/uL (150-450); RBC 3.65 m/uL (4.30-5.90); RDW 13.1 % (11.5-15.5); WBC 7.4 k/uL (3.8-10.6)
--- NOTE | 2018-10-10 13:00 | XR ---
EXAMINATION TYPE: XR chest 2V DATE OF EXAM: 10/10/2018 COMPARISON: NONE HISTORY: Fever, altered mental status TECHNIQUE: Frontal and lateral views of the chest are obtained. FINDINGS: There are overlying cardiac leads. Coronary artery calcifications are noted. Anterior flowi ng osteophytes along the thoracic spine may be due to diffuse idiopathic skeletal hyperostosis. There is no focal air space opacity, pleural effusion, or pneumothorax seen. Questionable prominence of th e pulmonary artery. The cardiac silhouette size is enlarged. The osseous structures are intact. IMPRESSION: Cardiomegaly and coronary artery disease. Additional findings above.
[2018-10-10 13:03] LABS: Calcium 9.5 mg/dL (8.4-10.2); INR 0.9 (<1.2); Partial Thromboplastin Time 22.5 sec (22.0-30.0); Potassium 5.3 mmol/L (3.5-5.1); Total Bilirubin 0.3 mg/dL (0.2-1.3); Total Protein 6.7 g/dL (6.3-8.2)
[2018-10-10] MEDS ORDERED: OSELTAMIVIR 75 MG CAP PO STA (14:19)
[2018-10-10] MEDS ORDERED: ACETAMINOPHEN TAB 500 MG TAB PO STA (15:48)
[2018-10-10 16:17] LABS: Appearance,Urine Clear (Clear); Bilirubin,Urine Negative (Negative); Blood,Urine Small (Negative); Color,Urine Yellow; Glucose,Urine (UA) Negative (Negative); Hyaline Casts,Urine 12 /lpf (0-2); Ketones,Urine Negative (Negative); Leukocyte Esterase,Urine Negative (Negative); Nitrite,Urine Negative (Negative); Protein,Urine Trace (Negative); Specific Gravity,Urine 1.015 (1.001-1.035); Urobilinogen,Urine <2.0 mg/dL (<2.0); WBC,Urine <1 /hpf (0-5)
[2018-10-10] MEDS ORDERED: SODIUM CHLORIDE 0.9% 1,000 ML IV ONE (16:26)
[2018-10-10 18:10] VITALS: BMI 23.6
[2018-10-10] MEDS: FERROUS SULFATE 325 MG TAB PO SCH (20:56)
[2018-10-10] MEDS: amLODIPine 2.5 MG TAB PO SCH (20:56)
[2018-10-10] MEDS: OSELTAMIVIR 75 MG CAP PO SCH (20:56)
[2018-10-10] MEDS: DONEPEZIL 10 MG TAB PO SCH (20:56)
[2018-10-10] MEDS: METOPROLOL TARTRATE 25 MG TAB PO SCH (20:56)
[2018-10-10] MEDS: DOCUSATE 100 MG CAP PO SCH (20:56)
[2018-10-10] MEDS: LISINOPRIL 20 MG TAB PO SCH (20:56)
[2018-10-11 07:04] LABS: Basophils % (A) 0 %; Eosinophils % (A) 0 %; HCT 31.5 % (39.0-53.0); HGB 10.1 gm/dL (13.0-17.5); Lymphocytes # (A) 0.8 k/uL (1.0-4.8); Lymphocytes % (A) 12 %; MCH 31.6 pg (25.0-35.0); MCV 98.6 fL (80.0-100.0); Mean Platelet Volume 7.6; Monocytes # (A) 0.6 k/uL (0-1.0); Monocytes % (A) 9 %; Neutrophils # (A) 5.4 k/uL (1.3-7.7); Neutrophils % (A) 77 %; Platelet Count 208 k/uL (150-450); RBC 3.19 m/uL (4.30-5.90); RDW 13.1 % (11.5-15.5); WBC 7.1 k/uL (3.8-10.6)
[2018-10-11 07:29] LABS: Albumin 3.3 g/dL (3.5-5.0); Calcium 8.5 mg/dL (8.4-10.2); Potassium 4.5 mmol/L (3.5-5.1); Total Bilirubin 0.3 mg/dL (0.2-1.3); Total Protein 5.6 g/dL (6.3-8.2)
[2018-10-11] MEDS: DOCUSATE 100 MG CAP PO SCH ×2 (10:58→22:18)
[2018-10-11] MEDS: FERROUS SULFATE 325 MG TAB PO SCH ×2 (10:58→22:18)
[2018-10-11] MEDS: METOPROLOL TARTRATE 25 MG TAB PO SCH ×2 (10:58→22:18)
[2018-10-11] MEDS: TAMSULOSIN 0.4 MG CAP.ER.24H PO SCH (10:58)
[2018-10-11] MEDS: LISINOPRIL 20 MG TAB PO SCH ×2 (10:59→22:18)
[2018-10-11] MEDS: TORSEMIDE 20 MG TAB PO SCH (10:59)
[2018-10-11] MEDS: amLODIPine 2.5 MG TAB PO SCH ×2 (10:59→22:18)
[2018-10-11] MEDS: OSELTAMIVIR 75 MG CAP PO SCH ×2 (10:59→22:18)
[2018-10-11] MEDS: ACETAMINOPHEN TAB 325 MG TAB PO PRN ×2 (11:07→22:19)
--- NOTE | 2018-10-11 11:15 | CONS ---
CONSULTATION CHIEF COMPLAINT: Weakness and confusion Tejinder is an 83-year-old gentleman who was found to be weaker and more confused than his usual state. [place] weak in both his legs and was brought into hospital. Patient had a low-grade fever, but has not had any recent cough, shortness of breath, chest pain, or leg edema. He is admitted to hospital with possible diagnosis of influenza and Cardiology is consulted because of abnormal EKG and mildly elevated troponins. His troponin was 0.1, 0.09 and 0.08 and at the time of my evaluation this morning, he appears comfortable at rest, seems pleasantly confused at rest. There is no history of coronary artery disease or congestive heart failure. PAST MEDICAL HISTORY: Significant for hypertension. ALLERGIES: SULFA. FAMILY HISTORY: Negative for premature coronary artery disease. SOCIAL HISTORY: Denies current smoking, EtOH abuse, or drug abuse. REVIEW OF SYSTEMS: HEENT is unremarkable. CARDIAC: As described above. RESPIRATORY: As described above. GI: Negative. GENITOURINARY: Negative. ALLERGY/IMMUNOLOGY: Negative. SKIN: Negative. MUSCULOSKELETAL: Significant for arthritis. PSYCHOSOCIAL: Negative. ENDOCRINE: Negative. DERM: Negative. CONSTITUTIONAL: Negative. ONCOLOGICAL: Negative. Rest of the system review is not relevant. Home medications include Vasotec 20 b.i.d., Lopressor 25 b.i.d. K-Dur 10 q. daily, Demadex 10 four days a week, Norvasc 2.5 b.i.d., Aricept, aspirin, iron, and Claritin. PHYSICAL EXAM: He is comfortable at rest. Vital signs is stable. Chest exam reveals good air entry bilaterally. Heart exam reveals first and second heart sounds. No gallop. No murmur. Abdomen is soft. Examination of the extremities reveals trace edema. Peripheral pulses are palpable. EKG shows sinus rhythm with left bundle branch block. ASSESSMENT: 1. Elevated troponin is not consistent with acute myocardial ischemia. 2. Hypertension. 3. Possible flu. PLAN: I am going to obtain a 2D echo to assess his LV function and wall motion. If these appear normal, no further cardiac workup is needed at this time. When he underlying febrile illness resolves, we may consider doing a stress test if necessary. MMODL / IJN: [id number] /
--- NOTE | 2018-10-11 11:45 | ECHOF ---
Referral Reason:troponin MEASUREMENTS -------- HEIGHT: 177.8 cm WEIGHT: 69.9 kg BP: IVSd: 1.0 cm (0.6 - 1.1) LVIDd: 3.6 cm (3.9 - 5.3) LVPWd: 1.1 cm (0.6 - 1.1) IVSs: 1.3 cm LVIDs: 2.3 cm LVPWs: 1.6 cm Ao Diam: 3.5 cm (2.0 - 3.7) AV Cusp: 1.8 cm (1.5 - 2.6) LA Diam: 2.9 cm (2.7 - 3.8) MV EXCURSION: 16.659 mm (> 18.000) MV EF SLOPE: 42 mm/s (70 - 150) EPSS: 0.9 cm MV E Percy: 0.90 m/s MV DecT: 326 ms MV A Percy: 1.10 m/s MV E/A Ratio: 0.81 AV maxP.70 mmHg AV meanP.53 mmHg RAP: 5.00 mmHg RVSP: 18.23 mmHg FINDINGS -------- Resting bradycardia (HR<60bpm). This was a technically difficult study with suboptimal views. The left ventricular size is normal. There is mild concentric left ventricular hypertrophy. Overa ll left ventricular systolic function is normal with, an EF between 55 - 60 %. The right ventricle is normal in size and function. The left atrium is normal in size. The right atrium is normal in size. Lumason used Aortic valve is trileaflet and is mildly thickened. There is mild aortic valve sclerosis. Peak/me an gradient across the Aortic Valve is 16.70mmHg / 8.53mmHg. Mild mitral regurgitation is present. Mild tricuspid regurgitation present. The right ventricular systolic pressure, as measured by Doppl er, is 18.23mmHg. Pulmonic valve appears structurally normal. The aortic root size is normal. IVC Not well visulized. The pericardium is normal. CONCLUSIONS -------- 1. Resting bradycardia (HR<60bpm). 2. This was a technically difficult study with suboptimal views. 3. The left ventricular size is normal. 4. There is mild concentric left ventricular hypertrophy. 5. The right ventricle is normal in size and function. 6. The left atrium is normal in size. 7. The right atrium is normal in size. 8. Lumason used 9. Aortic valve is trileaflet and is mildly thickened. 10. There is mild aortic valve sclerosis. 11. Peak/mean gradient across the Aortic Valve is 16.70mmHg / 8.53mmHg. 12. Mild mitral regurgitation is present. 13. Mild tricuspid regurgitation present. 14. The right ventricular systolic pressure, as measured by Doppler, is 18.23mmHg. 15. Pulmonic valve appears structurally normal. 16. The aortic root size is normal. 17. IVC Not well visulized. 18. The pericardium is normal. CONSTRUCTION PROJECT ADMINISTRATOR: Jennifer Sosa RDCS
--- NOTE | 2018-10-11 14:46 | P.HPIM ---
History of Present Illness H&P Date: 10/11/18 Chief Complaint: Confusion and weakness falls This is a pleasant 83-year-old gentleman patient of Dr. Burns he has underlying history of glaucoma hypertension, chronic dependent edema and short-term memory loss with vascular dementia, osteoarthritis recently underwent right total knee arthroplasty in July 2018 and was doing well with home therapies. Patient was subsequently seen in emergency room after he felt weak for the past 2 days 3 days, along with low-grade fever, upper respiratory type symptoms, decreased appetite, patient has increasing difficulty in supporting himself, he was subsequently seen in the emergency room with studies significant for influenza A urinalysis is negative except for hyaline cast troponins are mildly elevated 0.09 and 0.087, albumin low at 3.3, creatinine of 0.9 to sodium 141 hemoglobin of 10.1 WBC count of 7.1. Chest x-ray shows cardiomegaly with CAD, no pleural effusion, no pneumonia cardiac silhouette is enlarged diffuse idiopathic skeletal hyperostosis Review of Systems Constitutional: Reports as per HPI, Reports anorexia, Reports chills, Reports daytime sleepiness, Reports fatigue, Reports fever, Reports malaise, Reports night sweats, Reports weakness, Reports weight loss Ears, nose, mouth and throat: Reports as per HPI, Denies ant. neck pain, Denies bleeding gums, Denies dental pain, Denies dysphagia, Denies epistaxis, Denies headache, Denies hoarseness, Denies mouth pain, Denies nasal congestion, Denies nasal discharge, Denies neck fullness/pressure, Denies neck lump, Denies nose pain, Denies odynophagia, Denies post-nasal drip, Denies sinus pain, Denies sinus pressure, Denies swelling in mouth, Denies swelling in throat, Denies sore throat, Denies vertigo, Denies voice changes Cardiovascular: Reports as per HPI, Denies chest pain, Denies claudication, Denies decreased exercise tolerance, Denies dyspnea on exertion, Denies edema, Denies high blood pressure, Denies irregular heart beat, Denies leg edema, Denies lightheadedness, Denies orthopnea, Denies palpitations, Denies paroxysmal nocturnal dyspnea, Denies phlebitis, Denies rapid heart beat, Denies shortness of breath, Denies syncope Respiratory: Reports as per HPI, Reports cough, Denies congestion, Denies cough with sputum, Denies dyspnea, Denies excessive sputum, Denies hemoptysis, Denies home oxygen, Denies pain, Denies pain on inspiration, Denies pleurisy, Denies respiratory infections, Denies sleep apnea, Denies snoring, Denies wheezing Gastrointestinal: Reports as per HPI, Denies abdominal pain, Denies belching, Denies bloating, Denies BRBPR, Denies change in bowel habits, Denies coffee ground emesis, Denies constipation, Denies diarrhea, Denies dyspepsia, Denies early satiety, Denies excessive gas, Denies heartburn, Denies hematemesis, Denies hematochezia, Denies indigestion, Denies jaundice, Denies lactose intolerance, Denies loss of appetite, Denies melena, Denies nausea, Denies vomiting Genitourinary: Reports as per HPI Musculoskeletal: Reports as per HPI, Denies arm numbness/tingling, Denies atrophy, Denies fractures, Denies frequent falls, Denies gait dysfunction, Denies hot joints, Denies leg numbness/tingling, Denies limitation of motion, Denies loss of height, Denies low back pain, Denies morning stiffness, Denies muscle cramps, Denies muscle weakness, Denies myalgias, Denies neck pain, Denies neck stiffness, Denies prior amputations, Denies redness of joints, Denies shooting arm pain, Denies shooting leg pain Neurological: Reports as per HPI, Reports gait dysfunction, Reports memory loss , Reports weakness, Denies aphasia, Denies ataxia, Denies balance difficulties, Denies burning pain, Denies change in mentation, Denies change in smell/taste, Denies change in speech, Denies confusion, Denies convulsions, Denies double vision, Denies head injury, Denies headaches, Denies hearing difficulties, Denies lack of coordination, Denies loss of vision, Denies migraines, Denies motor disturbance, Denies numbness, Denies paralysis, Denies paresthesias, Denies seizures, Denies sensory deficit, Denies spasticity, Denies syncope, Denies tic, Denies tingling, Denies transient paralysis, Denies tremors, Denies vertigo, Denies visual changes Psychiatric: Reports as per HPI, Reports confusion, Reports difficulty concentrating, Reports memory loss, Denies anhedonia, Denies anxiety, Denies anxiety attacks, Denies change in appetite, Denies change in libido, Denies change in sleep habits, Denies depression, Denies disorientation, Denies hallucinations, Denies hopelessness, Denies hypersomnia, Denies insomnia, Denies irritability, Denies mood swings, Denies paranoia, Denies sadness/ tearfulness, Denies sleep disturbances, Denies suicidal ideation Endocrine: Reports as per HPI, Denies cold intolerance, Denies deepening of the voice, Denies excessive sweating, Denies excessive thirst, Denies fatigue, Denies flushing, Denies heat intolerance, Denies high blood sugars, Denies increase in ring/shoe/hat size, Denies low blood sugars, Denies nocturia, Denies palpitations, Denies polydipsia, Denies polyphagia, Denies polyuria, Denies proptosis, Denies recent glucocorticoid use, Denies thyroid mass, Denies weight change Hematologic/Lymphatic: Reports as per HPI, Denies easy bleeding, Denies easy bruising, Denies lymphadenopathy, Denies lymphedema, Denies thrombophilia Allergic/Immunologic: Reports as per HPI, Denies allergic rhinitis, Denies anaphylaxis, Denies angioedema, Denies gluten intolerance, Denies persistent infections, Denies seasonal allergies, Denies urticaria, Denies wheezing Past Medical History Past Medical History: Eye Disorder, Hypertension, Memory Impairment, Osteoarthritis (OA) Additional Past Medical History / Comment(s): HX GLAUCOMA. HX EDEMA ANKLES. SHORT TERM MEMORY LOSS, "VASCULAR DEMENTIA, PER " History of Any Multi-Drug Resistant Organisms: None Reported Additional Past Surgical History / Comment(s): NASAL PROCEDURE. CATARACTS STANISLAW. GLAUCOMA SURGERY [facility]W Past Anesthesia/Blood Transfusion Reactions: No Reported Reaction Past Psychological History: No Psychological Hx Reported Smoking Status: Former smoker Past Alcohol Use History: Daily Additional Past Alcohol Use History / Comment(s): SMOKED IN PAST, QUIT 1987 OR PRIOR. COUPLE BEERS RARELY. PATIENT WAS ALONE AT [facility]. Past Drug Use History: None Reported - Past Family History Father Family Medical History: Cancer Additional Family Medical History / Comment(s): PROSTATE Medications and Allergies Home Medications Medication Instructions Recorded Confirmed Type Acetaminophen [Tylenol Extra 1,000 mg PO BID 07/07/18 10/10/18 History Strength] Enalapril Maleate [Vasotec] 20 mg PO BID 07/07/18 10/10/18 History Ergocalciferol [Vitamin D2 50,000 unit PO Q14D 07/07/18 10/10/18 History (DRISDOL)] Metoprolol Tartrate [Lopressor] 25 mg PO BID 07/07/18 10/10/18 History Multivitamins, Thera [Multivitamin 1 tab PO DAILY 07/07/18 10/10/18 History (formulary)] Potassium Chloride [K-Tab ER] 10 meq PO MOFR 07/07/18 10/10/18 History Torsemide [Demadex] 10 mg PO [id number] 07/07/18 10/10/18 History amLODIPine [Norvasc] 2.5 mg PO BID 07/07/18 10/10/18 History Aricept 23mg 23 mg PO HS 07/27/18 10/10/18 History Docusate [Colace] 100 mg PO BID #60 capsule 07/28/18 10/10/18 Rx Tamsulosin [Flomax] 0.4 mg PO [id number] cap.er.24h 07/28/18 10/10/18 Rx Aspirin 325 mg PO HS 10/10/18 10/10/18 History Ferrous Sulfate [Feosol] 325 mg PO BID 10/10/18 10/10/18 History Loratadine [Claritin] 10 mg PO DAILY 10/10/18 10/10/18 History Allergies Allergy/AdvReac Type Severity Reaction Status Date / Time Sulfa (Sulfonamide Allergy Unknown Verified 10/10/18 11:44 Antibiotics) Childhood Physical Exam Vitals: Vital Signs Temp Pulse Pulse Resp BP BP Pulse Ox 10/11/18 11:26 16 10/11/18 11:08 62 16 123/57 93 L 10/11/18 08:00 73 16 144/58 93 L 10/11/18 03:09 97.2 F L 55 L 18 117/52 94 L 10/10/18 23:42 60 18 111/47 93 L 10/10/18 20:00 97.5 F L 56 L 18 115/50 92 L 10/10/18 17:40 99.8 F H 60 16 141/67 96 10/10/18 17:20 55 L 17 126/60 10/10/18 17:10 54 L 20 126/60 10/10/18 17:00 51 L 17 124/53 10/10/18 16:50 97.8 F 50 L 20 124/53 96 10/10/18 16:40 52 L 18 124/53 97 10/10/18 16:30 49 L 17 133/52 98 10/10/18 16:20 51 L 16 133/52 96 10/10/18 16:10 55 L 16 133/52 97 10/10/18 16:00 62 15 129/55 94 L 10/10/18 15:50 59 L 20 129/55 96 10/10/18 15:40 57 L 19 129/55 96 10/10/18 15:30 56 L 17 130/57 96 10/10/18 15:20 53 L 16 130/57 96 10/10/18 15:10 60 18 130/57 95 10/10/18 15:00 57 L 20 121/52 98 10/10/18 14:50 54 L 17 121/52 10/10/18 14:40 56 L 19 121/52 10/10/18 14:30 58 L 17 103/54 Intake and Output 10/10/18 10/11/18 10/11/18 22:59 06:59 14:59 Intake Total 300 120 Output Total 200 250 Balance 100 -250 120 Intake: IV 300 Sodium Chloride 0.9% 1, 300 000 ml @ 75 mls/hr IV . [id number] ONE Rx#:[id number] Oral 120 Output: Urine 200 250 Other: Voiding Method Toilet Toilet Urinal Urinal # Voids 1 1 2 Weight 72.575 kg 72.5 kg 70 kg - Constitutional General appearance: average body habitus, cooperative, no acute distress - EENT Eyes: anicteric sclerae, EOMI, PERRLA, poor dentition, normal appearance ENT: hard of hearing, NA/AT, normal oropharynx - Neck Neck: normal ROM - Respiratory Respiratory: bilateral: CTA, negative: diminished, dullness, rales - Cardiovascular Rhythm: regular Heart sounds: normal: S1, S2 Abnormal Heart Sounds: no systolic murmur, no diastolic murmur, no rub, no S3 Gallop, no S4 Gallop, no click, no other - Gastrointestinal General gastrointestinal: decreased bowel sounds, soft - Integumentary Integumentary: decreased turgor, normal - Neurologic Neurologic: CNII-XII intact - Musculoskeletal Musculoskeletal: gait normal, generalized weakness, strength equal bilaterally - Psychiatric Psychiatric: A&O x's 3, appropriate affect, intact judgment & insight Results CBC & Chem 7: 10/12/18 05:44 10/12/18 05:44 Labs: Abnormal Lab Results - Last 24 Hours (Table) 10/10/18 10/10/18 10/11/18 Range/Units 16:00 18:43 00:44 RBC (4.30-5.90) m/uL Hgb (13.0-17.5) gm/dL Hct (39.0-53.0) % Lymphocytes # (1.0-4.8) k/uL Chloride (98-107) mmol/L BUN (9-20) mg/dL Troponin I 0.095 H* 0.087 H* (0.000-0.034) ng/mL Total Protein (6.3-8.2) g/dL Albumin (3.5-5.0) g/dL Urine Protein Trace H (Negative) Urine Blood Small H (Negative) Hyaline Casts 12 H (0-2) /lpf 10/11/18 10/11/18 Range/Units 05:39 05:39 RBC 3.19 L (4.30-5.90) m/uL Hgb 10.1 L (13.0-17.5) gm/dL Hct 31.5 L (39.0-53.0) % Lymphocytes # 0.8 L (1.0-4.8) k/uL Chloride 113 H (98-107) mmol/L BUN 23 H (9-20) mg/dL Troponin I (0.000-0.034) ng/mL Total Protein 5.6 L (6.3-8.2) g/dL Albumin 3.3 L (3.5-5.0) g/dL Urine Protein (Negative) Urine Blood (Negative) Hyaline Casts (0-2) /lpf Microbiology - Last 24 Hours (Table) 10/10/18 16:00 Urine Culture - Preliminary Urine,Voided Laboratory Results WBC 7.1 k/uL (3.8-10.6) 10/11/18 05:39 RBC 3.19 m/uL (4.30-5.90) L 10/11/18 05:39 Hgb 10.1 gm/dL (13.0-17.5) L 10/11/18 05:39 Hct 31.5 % (39.0-53.0) L 10/11/18 05:39 MCV 98.6 fL (80.0-100.0) 10/11/18 05:39 MCH 31.6 pg (25.0-35.0) 10/11/18 05:39 MCHC 32.0 g/dL (31.0-37.0) 10/11/18 05:39 RDW 13.1 % (11.5-15.5) 10/11/18 05:39 Plt Count 208 k/uL (150-450) 10/11/18 05:39 Neutrophils % 77 % 10/11/18 05:39 Lymphocytes % 12 % 10/11/18 05:39 Monocytes % 9 % 10/11/18 05:39 Eosinophils % 0 % 10/11/18 05:39 Basophils % 0 % 10/11/18 05:39 Neutrophils # 5.4 k/uL (1.3-7.7) 10/11/18 05:39 Lymphocytes # 0.8 k/uL (1.0-4.8) L 10/11/18 05:39 Monocytes # 0.6 k/uL (0-1.0) 10/11/18 05:39 Eosinophils # 0.0 k/uL (0-0.7) 10/11/18 05:39 Basophils # 0.0 k/uL (0-0.2) 10/11/18 05:39 PT 10.0 sec (9.0-12.0) 10/10/18 12:24 INR 0.9 (<1.2) 10/10/18 12:24 APTT 22.5 sec (22.0-30.0) 10/10/18 12:24 Sodium 141 mmol/L (137-145) 10/11/18 05:39 Potassium 4.5 mmol/L (3.5-5.1) 10/11/18 05:39 Chloride 113 mmol/L (98-107) H 10/11/18 05:39 Carbon Dioxide 22 mmol/L (22-30) 10/11/18 05:39 Anion Gap 6 mmol/L 10/11/18 05:39 BUN 23 mg/dL (9-20) H 10/11/18 05:39 Creatinine 0.92 mg/dL (0.66-1.25) 10/11/18 05:39 Est GFR (CKD-EPI)AfAm 89 (>60 ml/min/1.73 sqM) 10/11/18 05:39 Est GFR (CKD-EPI)NonAf 77 (>60 ml/min/1.73 sqM) 10/11/18 05:39 Glucose 97 mg/dL (74-99) 10/11/18 05:39 Plasma Lactic Acid Renny 1.4 mmol/L (0.7-2.0) 10/10/18 12:24 Calcium 8.5 mg/dL (8.4-10.2) 10/11/18 05:39 Total Bilirubin 0.3 mg/dL (0.2-1.3) 10/11/18 05:39 AST 54 U/L (17-59) 10/11/18 05:39 ALT 30 U/L (21-72) 10/11/18 05:39 Alkaline Phosphatase 45 U/L (38-126) 10/11/18 05:39 Troponin I 0.087 ng/mL (0.000-0.034) H* 10/11/18 00:44 Total Protein 5.6 g/dL (6.3-8.2) L 10/11/18 05:39 Albumin 3.3 g/dL (3.5-5.0) L 10/11/18 05:39 Urine Color Yellow 10/10/18 16:00 Urine Appearance Clear (Clear) 10/10/18 16:00 Urine pH 5.0 (5.0-8.0) 10/10/18 16:00 Ur Specific Frost 1.015 (1.001-1.035) 10/10/18 16:00 Urine Protein Trace (Negative) H 10/10/18 16:00 Urine Glucose (UA) Negative (Negative) 10/10/18 16:00 Urine Ketones Negative (Negative) 10/10/18 16:00 Urine Blood Small (Negative) H 10/10/18 16:00 Urine Nitrite Negative (Negative) 10/10/18 16:00 Urine Bilirubin Negative (Negative) 10/10/18 16:00 Urine Urobilinogen <2.0 mg/dL (<2.0) 10/10/18 16:00 Ur Leukocyte Esterase Negative (Negative) 10/10/18 16:00 Urine WBC <1 /hpf (0-5) 10/10/18 16:00 Hyaline Casts 12 /lpf (0-2) H 10/10/18 16:00 Influenza Type A RNA Detected (Not Detectd) H 10/10/18 12:35 Influenza Type B (PCR) Not Detected (Not Detectd) 10/10/18 12:35 Thrombosis Risk Factor Assmnt - DVT/VTE Prophylaxis DVT/VTE Prophylaxis: Low risk, early ambulation encouraged - Choose All That Apply Any of the Below Risk Factors Present?: No Other Risk Factors: No Each Risk Factor Represents 3 Points: Age 75 years or older Other congenital or acquired thrombophilia - If yes, enter type in comment: No Thrombosis Risk Factor Assessment Total Risk Factor Score: 3 Thrombosis Risk Factor Assessment Level: Very Low Risk Assessment and Plan Plan: 1. Metabolic encephalopathy with influenza A infection, accompanied by anorexia and dehydration, and upper*infection without pneumonia, without hypoxemia patient currently is receiving Tamiflu at normal normal renal function GFR of 77 for the next 5 days 2. Recent right total knee arthroplasty July 2018, with ongoing therapies at home, currently walker assist on Coumadin ambulation, physical therapy would be following the patient in the hospital which we have consulted for both PT OT 3 BPH without lower tract symptomatology next 4. Hypertension currently on Lopressor 25 mg twice a day and Demadex 10 Tuesday and Tuesday amlodipine 2.5 mg twice a day no changes were made 5. Vascular dementia stable on anticholinesterase inhibition continue Aricept 6. Hypertension on Vasotec 20 mg twice a day Lopressor and Demadex amlodipine scheduled 7. Elevated troponin most likely in view off the influenza A, it's on a down hill trend not significant for cardiovascular ischemia 8. CK D stage II, with mild azotemia mild dehydration secondary to poor oral intake, IV fluids for hydration and monitor labs 9. Debility with recent right total knee arthroplasty, continue on physical therapy which was requested following risk 10. GI prophylaxis and DVT prophylaxis early ambulation and Pepcid oral 11. Mild dependent edema, no change in Demadex, provide adequate nutrition at this time, expect resolution off malnutrition over the next few days Mild protein calorie malnutrition secondary to acute illness influenza [id number]
[2018-10-11] MEDS: DONEPEZIL 10 MG TAB PO SCH (22:18)
[2018-10-12 06:58] LABS: Basophils % (A) 0 %; Eosinophils % (A) 0 %; HGB 10.4 gm/dL (13.0-17.5); Lymphocytes # (A) 1.7 k/uL (1.0-4.8); Lymphocytes % (A) 19 %; MCH 31.3 pg (25.0-35.0); MCHC 31.5 g/dL (31.0-37.0); MCV 99.3 fL (80.0-100.0); Mean Platelet Volume 7.2; Monocytes # (A) 0.6 k/uL (0-1.0); Monocytes % (A) 6 %; Neutrophils # (A) 6.5 k/uL (1.3-7.7); Neutrophils % (A) 72 %; Platelet Count 210 k/uL (150-450); RBC 3.33 m/uL (4.30-5.90); RDW 13.1 % (11.5-15.5)
[2018-10-12 07:08] LABS: Calcium 8.4 mg/dL (8.4-10.2); Potassium 3.9 mmol/L (3.5-5.1)
[2018-10-12] MEDS: TAMSULOSIN 0.4 MG CAP.ER.24H PO SCH (09:43)
[2018-10-12] MEDS: METOPROLOL TARTRATE 25 MG TAB PO SCH ×2 (09:43→20:50)
[2018-10-12] MEDS: amLODIPine 2.5 MG TAB PO SCH ×2 (09:43→20:42)
[2018-10-12] MEDS: FERROUS SULFATE 325 MG TAB PO SCH ×2 (09:43→20:50)
[2018-10-12] MEDS: OSELTAMIVIR 75 MG CAP PO SCH ×2 (09:43→20:50)
[2018-10-12] MEDS: DOCUSATE 100 MG CAP PO SCH ×2 (09:43→20:42)
[2018-10-12] MEDS: LISINOPRIL 20 MG TAB PO SCH ×2 (09:43→20:50)
--- NOTE | 2018-10-12 13:55 | P.PN ---
Subjective Progress Note Date: 10/12/18 This is a pleasant 83-year-old gentleman patient of Dr. Burns he has underlying history of glaucoma hypertension, chronic dependent edema and short-term memory loss with vascular dementia, osteoarthritis recently underwent right total knee arthroplasty in July 2018 and was doing well with home therapies. Patient was subsequently seen in emergency room after he felt weak for the past 2 days 3 days, along with low-grade fever, upper respiratory type symptoms, decreased appetite, patient has increasing difficulty in supporting himself, he was subsequently seen in the emergency room with studies significant for influenza A urinalysis is negative except for hyaline cast troponins are mildly elevated 0.09 and 0.087, albumin low at 3.3, creatinine of 0.9 to sodium 141 hemoglobin of 10.1 WBC count of 7.1. Chest x-ray shows cardiomegaly with CAD, no pleural effusion, no pneumonia cardiac silhouette is enlarged diffuse idiopathic skeletal hyperostosis 10/12: Patient has been evaluated by cardiology and elevated troponins are not consistent with acute myocardial ischemia but may consider stress test after influenza has resolved. Echocardiogram reveals EF of 55-60%, mild concentric left ventricular hypertrophy, mild aortic valve sclerosis, mild mitral regurgitation, mild tricuspid regurgitation. Patient is very tired today. He does have a congestive sounding cough. We will plan to obtain a chest x-ray, add incentive spirometry and monitor overnight. PT and OT evaluation and treatment ordered. Review of Systems Constitutional: Reports as per HPI, Reports anorexia, Reports chills, Reports daytime sleepiness, Reports fatigue, Reports fever, Reports malaise, Reports night sweats, Reports weakness Ears, nose, mouth and throat: Reports as per HPI, Denies ant. neck pain, Denies bleeding gums, Denies dental pain, Denies dysphagia, Denies epistaxis, Denies headache, Denies hoarseness, Denies mouth pain, Denies nasal congestion, Denies nasal discharge, Denies neck fullness/pressure, Denies neck lump, Denies nose pain, Denies odynophagia, Denies post-nasal drip, Denies sinus pain, Denies sinus pressure, Denies swelling in mouth, Denies swelling in throat, Denies sore throat, Denies vertigo, Denies voice changes Cardiovascular: Reports as per HPI, Denies chest pain, Denies claudication, Denies decreased exercise tolerance, Denies dyspnea on exertion, Denies edema, Denies high blood pressure, Denies irregular heart beat, Denies leg edema, Denies lightheadedness, Denies orthopnea, Denies palpitations, Denies paroxysmal nocturnal dyspnea, Denies phlebitis, Denies rapid heart beat, Denies shortness of breath, Denies syncope Respiratory: Reports as per HPI, Reports cough, Denies congestion, Denies cough with sputum, Denies dyspnea, Denies excessive sputum, Denies hemoptysis, Denies home oxygen, Denies pain, Denies pain on inspiration, Denies pleurisy, Denies respiratory infections, Denies sleep apnea, Denies snoring, Denies wheezing Gastrointestinal: Reports as per HPI, Denies abdominal pain, Denies belching, Denies bloating, Denies BRBPR, Denies change in bowel habits, Denies coffee ground emesis, Denies constipation, Denies diarrhea, Denies dyspepsia, Denies early satiety, Denies excessive gas, Denies heartburn, Denies hematemesis, Denies hematochezia, Denies indigestion, Denies jaundice, Denies lactose intolerance, Denies loss of appetite, Denies melena, Denies nausea, Denies vomiting Genitourinary: Reports as per HPI Musculoskeletal: Reports as per HPI, Denies arm numbness/tingling, Denies atrophy, Denies fractures, Denies frequent falls, Denies gait dysfunction, Denies hot joints, Denies leg numbness/tingling, Denies limitation of motion, Denies loss of height, Denies low back pain, Denies morning stiffness, Denies muscle cramps, Denies muscle weakness, Denies myalgias, Denies neck pain, Denies neck stiffness, Denies prior amputations, Denies redness of joints, Denies shooting arm pain, Denies shooting leg pain Neurological: Reports as per HPI, Reports gait dysfunction, Reports memory loss , Reports weakness, Denies aphasia, Denies ataxia, Denies balance difficulties, Denies burning pain, Denies change in mentation, Denies change in smell/taste, Denies change in speech, Denies confusion, Denies convulsions, Denies double vision, Denies head injury, Denies headaches, Denies hearing difficulties, Denies lack of coordination, Denies loss of vision, Denies migraines, Denies motor disturbance, Denies numbness, Denies paralysis, Denies paresthesias, Denies seizures, Denies sensory deficit, Denies spasticity, Denies syncope, Denies tic, Denies tingling, Denies transient paralysis, Denies tremors, Denies vertigo, Denies visual changes Psychiatric: Reports as per HPI, Reports confusion, Reports difficulty concentrating, Reports memory loss, Denies anhedonia, Denies anxiety, Denies anxiety attacks, Denies change in appetite, Denies change in libido, Denies change in sleep habits, Denies depression, Denies disorientation, Denies hallucinations, Denies hopelessness, Denies hypersomnia, Denies insomnia, Denies irritability, Denies mood swings, Denies paranoia, Denies sadness/ tearfulness, Denies sleep disturbances, Denies suicidal ideation Endocrine: Reports as per HPI, Denies cold intolerance, Denies deepening of the voice, Denies excessive sweating, Denies excessive thirst, Denies fatigue, Denies flushing, Denies heat intolerance, Denies high blood sugars, Denies increase in ring/shoe/hat size, Denies low blood sugars, Denies nocturia, Denies palpitations, Denies polydipsia, Denies polyphagia, Denies polyuria, Denies proptosis, Denies recent glucocorticoid use, Denies thyroid mass, Denies weight change Hematologic/Lymphatic: Reports as per HPI, Denies easy bleeding, Denies easy bruising, Denies lymphadenopathy, Denies lymphedema, Denies thrombophilia Allergic/Immunologic: Reports as per HPI, Denies allergic rhinitis, Denies anaphylaxis, Denies angioedema, Denies gluten intolerance, Denies persistent infections, Denies seasonal allergies, Denies urticaria, Denies wheezing Objective - Vital Signs Vital signs: Vital Signs Temp 98.5 F 10/12/18 08:00 Pulse 60 10/12/18 11:56 Resp 16 10/12/18 11:56 BP 135/64 10/12/18 11:56 Pulse Ox 92 L 10/12/18 11:56 Intake & Output 10/11/18 10/12/18 10/12/18 18:59 06:59 18:59 Intake Total 960 240 Output Total 300 150 Balance 960 -300 90 Weight 70 kg 70.5 kg Intake: Intake, IV Titration 600 Amount Sodium Chloride 0.9% 1, 600 000 ml @ 75 mls/hr IV . [id number] ONE Rx#:[id number] Oral 360 240 Output: Urine 300 150 Other: Voiding Method Toilet Toilet Toilet Urinal Urinal Urinal Diaper Diaper # Voids 3 1 1 # Bowel Movements 1 - Exam General appearance: average body habitus, cooperative, no acute distress - EENT Eyes: anicteric sclerae, EOMI, PERRLA, poor dentition, normal appearance ENT: hard of hearing, NA/AT, normal oropharynx - Neck Neck: normal ROM - Respiratory Respiratory: bilateral: CTA, negative: diminished, dullness, rales - Cardiovascular Rhythm: regular Heart sounds: normal: S1, S2 Abnormal Heart Sounds: no systolic murmur, no diastolic murmur, no rub, no S3 Gallop, no S4 Gallop, no click, no other - Gastrointestinal General gastrointestinal: decreased bowel sounds, soft - Integumentary Integumentary: decreased turgor, normal - Neurologic Neurologic: CNII-XII intact - Musculoskeletal Musculoskeletal: gait normal, generalized weakness, strength equal bilaterally - Psychiatric Psychiatric: A&O x's 3, appropriate affect, intact judgment & insight - Labs CBC & Chem 7: 10/13/18 05:21 10/13/18 05:21 Labs: Abnormal Lab Results - Last 24 Hours (Table) 10/12/18 10/12/18 Range/Units 05:44 05:44 RBC 3.33 L (4.30-5.90) m/uL Hgb 10.4 L (13.0-17.5) gm/dL Hct 33.0 L (39.0-53.0) % Chloride 109 H (98-107) mmol/L BUN 22 H (9-20) mg/dL Microbiology - Last 24 Hours (Table) 10/10/18 16:00 Urine Culture - Final Urine,Voided 10/10/18 12:24 Blood Culture - Preliminary Blood No Growth after 24 hours Assessment and Plan Plan: 1. Metabolic encephalopathy with influenza A infection, accompanied by anorexia and dehydration, and upper*infection without pneumonia, without hypoxemia patient currently is receiving Tamiflu at normal renal function GFR of 77 for the next 5 days. Incentive spirometry and repeat chest x-ray ordered 2. Recent right total knee arthroplasty July 2018, with ongoing therapies at home, currently walker assist on Coumadin ambulation, physical therapy would be following the patient in the hospital which we have consulted for both PT OT 3. BPH without lower tract symptomatology next 4. Hypertension currently on Lopressor 25 mg twice a day and Demadex 10 Tuesday and Tuesday amlodipine 2.5 mg twice a day no changes were made 5. Vascular dementia stable on anticholinesterase inhibition continue Aricept 6. Elevated troponin, acute coronary syndrome ruled out by cardiology. Cardiology consult is appreciated. Echocardiogram as above. 7. CKD stage II, with mild azotemia mild dehydration secondary to poor oral intake, IV fluids for hydration and monitor labs 8. Debility with recent right total knee arthroplasty, continue on physical therapy which was requested following risk 9. GI prophylaxis and DVT prophylaxis early ambulation and Pepcid oral 10. Mild dependent edema, no change in Demadex, provide adequate nutrition at this time, expect resolution off malnutrition over the next few days 11. Mild protein calorie malnutrition secondary to acute illness influenza [id number] Discharge plan: Most likely return home. PT and OT added. Impression and plan of care have been directed as dictated by the signing physician. Tamara Mendez nurse practitioner acting as scribe for signing physician.
--- NOTE | 2018-10-12 15:31 | P.PN ---
Subjective Progress Note Date: 10/12/18 This is a pleasant 83-year-old gentleman patient of Dr. Burns he has underlying history of glaucoma hypertension, chronic dependent edema and short-term memory loss with vascular dementia, osteoarthritis recently underwent right total knee arthroplasty in July 2018 and was doing well with home therapies. Patient was subsequently seen in emergency room after the patient presented with weakness for 2 days 3 days, along with low-grade fever, upper respiratory type symptoms, decreased appetite, patient has increasing difficulty in supporting himself, he was subsequently seen in the emergency room with studies significant for influenza A urinalysis is negative except for hyaline cast troponins are mildly elevated 0.09 and 0.087, albumin low at 3.3, creatinine of 0.9 to sodium 141 hemoglobin of 10.1 WBC count of 7.1. Chest x-ray shows cardiomegaly with CAD, no pleural effusion, no pneumonia cardiac silhouette is enlarged diffuse idiopathic skeletal hyperostosis. Troponin was drawn which came back to be abnormal and for this reason a cardiology consultation had been requested. Troponin 0.10, 0.09, 0.08. Echocardiogram with Doppler study revealed a normal left ventricular systolic function. Objective - Vital Signs Vital signs: Vital Signs Temp 98.5 F 10/12/18 08:00 Pulse 60 10/12/18 11:56 Resp 16 10/12/18 11:56 BP 135/64 10/12/18 11:56 Pulse Ox 92 L 10/12/18 11:56 Intake & Output 10/11/18 10/12/18 10/12/18 18:59 06:59 18:59 Intake Total 960 240 Output Total 300 150 Balance 960 -300 90 Weight 70 kg 70.5 kg Intake: Intake, IV Titration 600 Amount Sodium Chloride 0.9% 1, 600 000 ml @ 75 mls/hr IV . [id number] ONE Rx#:[id number] Oral 360 240 Output: Urine 300 150 Other: Voiding Method Toilet Toilet Toilet Urinal Urinal Urinal Diaper Diaper # Voids 3 1 1 # Bowel Movements 1 - Exam GENERAL: Well-appearing, well-nourished and in no acute distress. NECK: Supple without JVD or thyromegaly. LUNGS: Respiration equal and unlabored. Course rhonchi noted throughout with faint expiratory wheezes. No rales. Diminished bilaterally. HEART: Regular rate and rhythm with systolic ejection murmurs, rubs or gallops. S1 and S2 heard. EXTREMITIES: Normal range of motion, no edema. No clubbing or cyanosis. Peripheral pulses intact. - Labs CBC & Chem 7: 10/12/18 05:44 10/12/18 05:44 Labs: Abnormal Lab Results - Last 24 Hours (Table) 10/12/18 10/12/18 Range/Units 05:44 05:44 RBC 3.33 L (4.30-5.90) m/uL Hgb 10.4 L (13.0-17.5) gm/dL Hct 33.0 L (39.0-53.0) % Chloride 109 H (98-107) mmol/L BUN 22 H (9-20) mg/dL Microbiology - Last 24 Hours (Table) 10/10/18 12:24 Blood Culture - Preliminary Blood No Growth after 48 hours 10/10/18 16:00 Urine Culture - Final Urine,Voided Assessment and Plan Plan: Assessment and plan #1Influenza A #2Acute exacerbation of chronic systolic heart failure, transitioned to PO lasix #3COPD #4History of coronary artery disease #5 ischemic cardiomyopathy s/p AICD #6 abnormal troponin, not consistent with acute coronary syndrome, echo revealed normal left ventricular systolic function. Plan From cardiology's perspective, we'll follow this patient along with you now on an as-needed basis only, please don't hesitate with any questions. DNP note has been reviewed, I agree with a documented findings and plan of care. Patient was seen and examined.
[2018-10-12] MEDS: SODIUM CHLORIDE 0.9% 1,000 ML IV SCH (15:41)
--- NOTE | 2018-10-12 18:08 | XR ---
EXAMINATION TYPE: XR chest 2V DATE OF EXAM: 10/12/2018 COMPARISON: 10/10/2018 HISTORY: Cough TECHNIQUE: Frontal and lateral views of the chest are obtained. FINDINGS: There is no heart failure nor confluent pneumonic infiltrate. Costophrenic angles are aniceto r. There are chest leads. There is minor spurring in the thoracic spine. IMPRESSION: No active cardiopulmonary disease. Normal heart. No change.
[2018-10-12] MEDS: DONEPEZIL 10 MG TAB PO SCH (20:43)
[2018-10-13 06:47] LABS: Basophils % (A) 0 %; Eosinophils % (A) 0 %; HCT 34.2 % (39.0-53.0); HGB 10.8 gm/dL (13.0-17.5); Lymphocytes # (A) 1.5 k/uL (1.0-4.8); Lymphocytes % (A) 17 %; MCH 30.7 pg (25.0-35.0); MCHC 31.6 g/dL (31.0-37.0); MCV 97.4 fL (80.0-100.0); Mean Platelet Volume 7.1; Monocytes # (A) 0.6 k/uL (0-1.0); Monocytes % (A) 7 %; Neutrophils # (A) 6.7 k/uL (1.3-7.7); Neutrophils % (A) 74 %; Platelet Count 217 k/uL (150-450); RBC 3.51 m/uL (4.30-5.90); RDW 12.9 % (11.5-15.5); WBC 8.9 k/uL (3.8-10.6)
[2018-10-13 07:00] LABS: Anion Gap 6 mmol/L; Blood Urea Nitrogen 17 mg/dL (9-20); Calcium 8.4 mg/dL (8.4-10.2); Carbon Dioxide 28 mmol/L (22-30); Chloride 106 mmol/L (98-107); Glucose 91 mg/dL (74-99); Potassium 4.1 mmol/L (3.5-5.1); Sodium 140 mmol/L (137-145)
[2018-10-13] MEDS: METOPROLOL TARTRATE 25 MG TAB PO SCH (09:01)
[2018-10-13] MEDS: LISINOPRIL 20 MG TAB PO SCH ×2 (09:01→20:08)
[2018-10-13] MEDS: POTASSIUM CHLORIDE ER 10 MEQ TAB.ER.PRT PO SCH (09:01)
[2018-10-13] MEDS: amLODIPine 2.5 MG TAB PO SCH ×2 (09:02→20:07)
[2018-10-13] MEDS: DOCUSATE 100 MG CAP PO SCH ×2 (09:02→20:07)
[2018-10-13] MEDS: OSELTAMIVIR 75 MG CAP PO SCH ×2 (09:02→20:08)
[2018-10-13] MEDS: TAMSULOSIN 0.4 MG CAP.ER.24H PO SCH (09:02)
[2018-10-13] MEDS: FERROUS SULFATE 325 MG TAB PO SCH ×2 (09:02→20:07)
[2018-10-13] MEDS: ACETAMINOPHEN TAB 325 MG TAB PO PRN ×2 (09:08→20:08)
[2018-10-13] MEDS: TORSEMIDE 20 MG TAB PO SCH (09:08)
--- NOTE | 2018-10-13 14:05 | P.PN ---
Subjective Progress Note Date: 10/13/18 This is a pleasant 83-year-old gentleman patient of Dr. Burns he has underlying history of glaucoma hypertension, chronic dependent edema and short-term memory loss with vascular dementia, osteoarthritis recently underwent right total knee arthroplasty in July 2018 and was doing well with home therapies. Patient was subsequently seen in emergency room after he felt weak for the past 2 days 3 days, along with low-grade fever, upper respiratory type symptoms, decreased appetite, patient has increasing difficulty in supporting himself, he was subsequently seen in the emergency room with studies significant for influenza A urinalysis is negative except for hyaline cast troponins are mildly elevated 0.09 and 0.087, albumin low at 3.3, creatinine of 0.9 to sodium 141 hemoglobin of 10.1 WBC count of 7.1. Chest x-ray shows cardiomegaly with CAD, no pleural effusion, no pneumonia cardiac silhouette is enlarged diffuse idiopathic skeletal hyperostosis 10/12: Patient has been evaluated by cardiology and elevated troponins are not consistent with acute myocardial ischemia but may consider stress test after influenza has resolved. Echocardiogram reveals EF of 55-60%, mild concentric left ventricular hypertrophy, mild aortic valve sclerosis, mild mitral regurgitation, mild tricuspid regurgitation. Patient is very tired today. He does have a congestive sounding cough. We will plan to obtain a chest x-ray, add incentive spirometry and monitor overnight. PT and OT evaluation and treatment ordered. 10/13: Patient is more alert today but still tired and not back to his baseline. Chest x-ray done yesterday showed no acute cardio pulmonary disease. He has been afebrile. PT has recommended subacute rehab or assisted living with 24- hour supervision. Patient is currently in the independent side of [facility]. Discussed discharge planning and family would like to have him go to subacute rehab. search manager has been updated. Heart rate is running 48-61 and Lopressor will be decreased to 12.5 mg twice daily, blood pressure 101/52, pulse ox 95% on room air. Cardiology has signed off and following as needed only. White count is 8.9, hemoglobin 10.8, electrolytes within normal limits, creatinine 0.88. Anticipate discharge to [facility] on Tuesday. Review of Systems Constitutional: Reports as per HPI, Reports anorexia, Reports chills, Reports daytime sleepiness, Reports fatigue, Reports fever, Reports malaise, Reports night sweats, Reports weakness Ears, nose, mouth and throat: Reports as per HPI, Denies ant. neck pain, Denies bleeding gums, Denies dental pain, Denies dysphagia, Denies epistaxis, Denies headache, Denies hoarseness, Denies mouth pain, Denies nasal congestion, Denies nasal discharge, Denies neck fullness/pressure, Denies neck lump, Denies nose pain, Denies odynophagia, Denies post-nasal drip, Denies sinus pain, Denies sinus pressure, Denies swelling in mouth, Denies swelling in throat, Denies sore throat, Denies vertigo, Denies voice changes Cardiovascular: Reports as per HPI, Denies chest pain, Denies claudication, Denies decreased exercise tolerance, Denies dyspnea on exertion, Denies edema, Denies high blood pressure, Denies irregular heart beat, Denies leg edema, Denies lightheadedness, Denies orthopnea, Denies palpitations, Denies paroxysmal nocturnal dyspnea, Denies phlebitis, Denies rapid heart beat, Denies shortness of breath, Denies syncope Respiratory: Reports as per HPI, Reports cough, Denies congestion, Denies cough with sputum, Denies dyspnea, Denies excessive sputum, Denies hemoptysis, Denies home oxygen, Denies pain, Denies pain on inspiration, Denies pleurisy, Denies respiratory infections, Denies sleep apnea, Denies snoring, Denies wheezing Gastrointestinal: Reports as per HPI, Denies abdominal pain, Denies belching, Denies bloating, Denies BRBPR, Denies change in bowel habits, Denies coffee ground emesis, Denies constipation, Denies diarrhea, Denies dyspepsia, Denies early satiety, Denies excessive gas, Denies heartburn, Denies hematemesis, Denies hematochezia, Denies indigestion, Denies jaundice, Denies lactose intolerance, Denies loss of appetite, Denies melena, Denies nausea, Denies vomiting Genitourinary: Reports as per HPI Musculoskeletal: Reports as per HPI, Denies arm numbness/tingling, Denies atrophy, Denies fractures, Denies frequent falls, Denies gait dysfunction, Denies hot joints, Denies leg numbness/tingling, Denies limitation of motion, Denies loss of height, Denies low back pain, Denies morning stiffness, Denies muscle cramps, Denies muscle weakness, Denies myalgias, Denies neck pain, Denies neck stiffness, Denies prior amputations, Denies redness of joints, Denies shooting arm pain, Denies shooting leg pain Neurological: Reports as per HPI, Reports gait dysfunction, Reports memory loss , Reports weakness, Denies aphasia, Denies ataxia, Denies balance difficulties, Denies burning pain, Denies change in mentation, Denies change in smell/taste, Denies change in speech, Denies confusion, Denies convulsions, Denies double vision, Denies head injury, Denies headaches, Denies hearing difficulties, Denies lack of coordination, Denies loss of vision, Denies migraines, Denies motor disturbance, Denies numbness, Denies paralysis, Denies paresthesias, Denies seizures, Denies sensory deficit, Denies spasticity, Denies syncope, Denies tic, Denies tingling, Denies transient paralysis, Denies tremors, Denies vertigo, Denies visual changes Psychiatric: Reports as per HPI, Reports confusion, Reports difficulty concentrating, Reports memory loss, Denies anhedonia, Denies anxiety, Denies anxiety attacks, Denies change in appetite, Denies change in libido, Denies change in sleep habits, Denies depression, Denies disorientation, Denies hallucinations, Denies hopelessness, Denies hypersomnia, Denies insomnia, Denies irritability, Denies mood swings, Denies paranoia, Denies sadness/ tearfulness, Denies sleep disturbances, Denies suicidal ideation Endocrine: Reports as per HPI, Denies cold intolerance, Denies deepening of the voice, Denies excessive sweating, Denies excessive thirst, Denies fatigue, Denies flushing, Denies heat intolerance, Denies high blood sugars, Denies increase in ring/shoe/hat size, Denies low blood sugars, Denies nocturia, Denies palpitations, Denies polydipsia, Denies polyphagia, Denies polyuria, Denies proptosis, Denies recent glucocorticoid use, Denies thyroid mass, Denies weight change Hematologic/Lymphatic: Reports as per HPI, Denies easy bleeding, Denies easy bruising, Denies lymphadenopathy, Denies lymphedema, Denies thrombophilia Allergic/Immunologic: Reports as per HPI, Denies allergic rhinitis, Denies anaphylaxis, Denies angioedema, Denies gluten intolerance, Denies persistent infections, Objective - Vital Signs Vital signs: Vital Signs Temp 98.3 F 10/13/18 08:00 Pulse 48 L 10/13/18 12:00 Resp 16 10/13/18 12:00 BP 101/52 10/13/18 12:00 Pulse Ox 95 10/13/18 12:00 Intake & Output 10/12/18 10/13/18 10/13/18 18:59 06:59 18:59 Intake Total 360 60 Output Total 150 Balance 210 60 Weight 68.6 kg Intake: Oral 360 60 Output: Urine 150 Other: Voiding Method Toilet Toilet Toilet Urinal Urinal Urinal Diaper Diaper Diaper # Voids 1 1 # Bowel Movements 1 1 - Exam General appearance: average body habitus, cooperative, no acute distress, patient resting in bed - EENT Eyes: anicteric sclerae, EOMI, PERRLA, poor dentition, normal appearance ENT: hard of hearing, NA/AT, normal oropharynx - Neck Neck: normal ROM - Respiratory Respiratory: bilateral: CTA, negative: diminished, dullness, rales - Cardiovascular Rhythm: regular Heart sounds: normal: S1, S2 Abnormal Heart Sounds: no systolic murmur, no diastolic murmur, no rub, no S3 Gallop, no S4 Gallop, no click, no other - Gastrointestinal General gastrointestinal: decreased bowel sounds, soft - Integumentary Integumentary: decreased turgor, normal - Neurologic Neurologic: CNII-XII intact - Musculoskeletal Musculoskeletal: gait normal, generalized weakness, strength equal bilaterally - Psychiatric Psychiatric: A&O x's 3, appropriate affect, intact judgment & insight - Labs CBC & Chem 7: 10/13/18 05:21 10/13/18 05:21 Labs: Abnormal Lab Results - Last 24 Hours (Table) 10/13/18 Range/Units 05:21 RBC 3.51 L (4.30-5.90) m/uL Hgb 10.8 L (13.0-17.5) gm/dL Hct 34.2 L (39.0-53.0) % Microbiology - Last 24 Hours (Table) 10/10/18 12:24 Blood Culture - Preliminary Blood No Growth after 48 hours Assessment and Plan Plan: 1. Metabolic encephalopathy with influenza A infection, accompanied by anorexia and dehydration, and upper*infection without pneumonia, without hypoxemia patient currently is receiving Tamiflu at normal renal function GFR of 77 for the next 5 days. Incentive spirometry continued. Repeat chest x-ray is negative 2. Recent right total knee arthroplasty July 2018, with ongoing therapies at home, currently walker assist on Coumadin ambulation, physical therapy would be following the patient in the hospital which we have consulted for both PT OT 3. BPH without lower tract symptomatology next 4. Hypertension currently on Lopressor 25 mg twice a day and Demadex Tuesday and Tuesday amlodipine 2.5 mg twice a day no changes were made 5. Vascular dementia stable on anticholinesterase inhibition continue Aricept 6. Elevated troponin, acute coronary syndrome ruled out by cardiology. Cardiology consult is appreciated. Echocardiogram as above. 7. CKD stage II, with mild azotemia mild dehydration secondary to poor oral intake, IV fluids for hydration and monitor labs 8. Debility with recent right total knee arthroplasty, continue on physical therapy which was requested following risk 9. GI prophylaxis and DVT prophylaxis early ambulation and Pepcid oral 10. Mild dependent edema, no change in Demadex, provide adequate nutrition at this time, expect resolution of malnutrition over the next few days 11. Mild protein calorie malnutrition secondary to acute illness influenza A Discharge plan: [place] on Tuesday under the care of Dr. Paige Impression and plan of care have been directed as dictated by the signing physician. Tamara Mendez nurse practitioner acting as scribe for signing physician.
[2018-10-13] MEDS: SODIUM CHLORIDE 0.9% 1,000 ML IV SCH (19:59)
[2018-10-13] MEDS: DONEPEZIL 10 MG TAB PO SCH (20:07)
[2018-10-13] MEDS: METOPROLOL TARTRATE 12.5 MG TAB PO SCH (20:08)
[2018-10-14 06:59] LABS: Basophils % (A) 0 %; Eosinophils # (A) 0.1 k/uL (0-0.7); Eosinophils % (A) 1 %; HCT 34.8 % (39.0-53.0); HGB 11.1 gm/dL (13.0-17.5); Lymphocytes # (A) 1.9 k/uL (1.0-4.8); Lymphocytes % (A) 21 %; MCH 30.6 pg (25.0-35.0); MCHC 31.8 g/dL (31.0-37.0); MCV 96.2 fL (80.0-100.0); Monocytes # (A) 0.5 k/uL (0-1.0); Monocytes % (A) 6 %; Neutrophils % (A) 70 %; Platelet Count 270 k/uL (150-450); RBC 3.62 m/uL (4.30-5.90); RDW 12.8 % (11.5-15.5); WBC 8.6 k/uL (3.8-10.6)
[2018-10-14 07:08] LABS: Calcium 8.8 mg/dL (8.4-10.2); Potassium 4.1 mmol/L (3.5-5.1)
[2018-10-14] MEDS: TAMSULOSIN 0.4 MG CAP.ER.24H PO SCH (09:31)
[2018-10-14] MEDS: DOCUSATE 100 MG CAP PO SCH ×2 (09:31→20:22)
[2018-10-14] MEDS: METOPROLOL TARTRATE 12.5 MG TAB PO SCH ×2 (09:31→20:23)
[2018-10-14] MEDS: OSELTAMIVIR 75 MG CAP PO SCH ×2 (09:32→20:23)
[2018-10-14] MEDS: FERROUS SULFATE 325 MG TAB PO SCH ×2 (09:32→20:22)
[2018-10-14] MEDS: TORSEMIDE 20 MG TAB PO SCH (09:34)
[2018-10-14] MEDS: amLODIPine 2.5 MG TAB PO SCH ×2 (09:37→20:22)
[2018-10-14] MEDS: LISINOPRIL 20 MG TAB PO SCH ×2 (09:37→20:22)
[2018-10-14] MEDS: ACETAMINOPHEN TAB 325 MG TAB PO PRN ×3 (09:41→20:23)
--- NOTE | 2018-10-14 11:03 | P.PN ---
Subjective Progress Note Date: 10/14/18 This is a pleasant 83-year-old gentleman patient of Dr. Burns he has underlying history of glaucoma hypertension, chronic dependent edema and short-term memory loss with vascular dementia, osteoarthritis recently underwent right total knee arthroplasty in July 2018 and was doing well with home therapies. Patient was subsequently seen in emergency room after he felt weak for the past 2 days 3 days, along with low-grade fever, upper respiratory type symptoms, decreased appetite, patient has increasing difficulty in supporting himself, he was subsequently seen in the emergency room with studies significant for influenza A urinalysis is negative except for hyaline cast troponins are mildly elevated 0.09 and 0.087, albumin low at 3.3, creatinine of 0.9 to sodium 141 hemoglobin of 10.1 WBC count of 7.1. Chest x-ray shows cardiomegaly with CAD, no pleural effusion, no pneumonia cardiac silhouette is enlarged diffuse idiopathic skeletal hyperostosis 10/12: Patient has been evaluated by cardiology and elevated troponins are not consistent with acute myocardial ischemia but may consider stress test after influenza has resolved. Echocardiogram reveals EF of 55-60%, mild concentric left ventricular hypertrophy, mild aortic valve sclerosis, mild mitral regurgitation, mild tricuspid regurgitation. Patient is very tired today. He does have a congestive sounding cough. We will plan to obtain a chest x-ray, add incentive spirometry and monitor overnight. PT and OT evaluation and treatment ordered. 10/13: Patient is more alert today but still tired and not back to his baseline. Chest x-ray done yesterday showed no acute cardio pulmonary disease. He has been afebrile. PT has recommended subacute rehab or assisted living with 24- hour supervision. Patient is currently in the independent side of [facility]. Discussed discharge planning and family would like to have him go to subacute rehab. manager financial reporting has been updated. Heart rate is running 48-61 and Lopressor will be decreased to 12.5 mg twice daily, blood pressure 101/52, pulse ox 95% on room air. Cardiology has signed off and following as needed only. White count is 8.9, hemoglobin 10.8, electrolytes within normal limits, creatinine 0.88. Anticipate discharge to [facility] on Tuesday. 10/14: Patient is resting comfortable in bed. He has been up and around his room with assistance and his walker. Discharge is planned on Tuesday to [facility]. Discussed with patient discharge plan which he was agreeable to. Patient states that he is starting to feel better and his strength is slowly improving. He denies any complaints at this time denies fever or chills. WBC 8.6, hemoglobin 11.1, potassium 4.1, BUN 22, creatinine 1.04. Review Of Systems: Constitutional: No fever, no chills, no night sweats. No weight change. Reports weakness, no fatigue or lethargy. No daytime sleepiness. EENT: No headache. No blurred vision or double vision, no loss of vision. No loss of Hearing, no ringing in the ears, no dizziness. No nasal drainage or congestion. No epistaxis. No sore throat. Lungs: No shortness of breath, cough, no sputum production. No wheezing. Cardiovascular: No chest pain, no lower extremity edema. No palpitations. No paroxysmal nocturnal dyspnea. No orthopnea. No lightheadedness or dizziness. No syncopal episodes. Abdominal: no abdominal discomfort. No nausea, vomiting. no diarrhea. No constipation. No bloody or tarry stools. improved loss of appetite. Genitourinary: No dysuria, No frequency or urgency. No urinary retention. Musculoskeletal: No myalgias. No muscle weakness, no gait dysfunction, no frequent falls. No back pain. No neck pain. Integumentary: No wounds, no lesions. No rash or pruritus. No unusual bruising. No change in hair or nails. Neurologic: No aphasia. No facial droop. No change in mentation. No head injury. No headache. No paralysis. No paresthesia. Psychiatric: No depression. No anxiety. No mood swings. Endocrine: No abnormal blood sugars. No weight change. No excessive sweating or thirst. Objective - Vital Signs Vital signs: Vital Signs Temp 98 F 10/14/18 08:00 Pulse 70 10/14/18 08:00 Resp 18 10/14/18 08:00 BP 90/52 10/14/18 08:00 Pulse Ox 94 L 10/14/18 08:00 Intake & Output 10/13/18 10/14/18 10/14/18 18:59 06:59 18:59 Intake Total 360 240 160 Output Total 1200 Balance -840 240 160 Weight 66.5 kg Intake: Oral 360 240 160 Output: Urine 1200 Other: Voiding Method Toilet Toilet Urinal Urinal Diaper # Voids 5 3 # Bowel Movements 2 - Constitutional General appearance: Present: average body habitus, cooperative, no acute distress - EENT Eyes: Present: anicteric sclerae, EOMI, PERRLA ENT: Present: hearing grossly normal, NA/AT Ears: bilateral: normal - Neck Neck: Present: normal ROM. Absent: lymphadenopathy, rigidity - Respiratory Respiratory: bilateral: CTA, negative: diminished, dullness, rales, rhonchi, wheezing - Cardiovascular Rhythm: regular Heart sounds: normal: S1, S2 Abnormal Heart Sounds: Absent: systolic murmur, diastolic murmur, rub, S3 Gallop , S4 Gallop, click, other - Gastrointestinal General gastrointestinal: Present: normal bowel sounds, soft. Absent: organomegaly, tenderness - Integumentary Integumentary: Present: decreased turgor, pale - Neurologic Neurologic: Present: CNII-XII intact - Musculoskeletal Musculoskeletal: Present: gait normal, generalized weakness - Psychiatric Psychiatric: Present: A&O x's 3, appropriate affect, intact judgment & insight - Labs CBC & Chem 7: 10/14/18 06:00 10/14/18 06:00 Labs: Abnormal Lab Results - Last 24 Hours (Table) 10/14/18 10/14/18 Range/Units 06:00 06:00 RBC 3.62 L (4.30-5.90) m/uL Hgb 11.1 L (13.0-17.5) gm/dL Hct 34.8 L (39.0-53.0) % BUN 22 H (9-20) mg/dL Microbiology - Last 24 Hours (Table) 10/10/18 12:24 Blood Culture - Preliminary Blood No Growth after 72 hours Assessment and Plan Plan: 1. Metabolic encephalopathy with influenza A infection, accompanied by anorexia and dehydration, and upper*infection without pneumonia, without hypoxemia patient currently is receiving Tamiflu at normal renal function GFR of 77 for the next 5 days. Incentive spirometry continued. Repeat chest x-ray is negative 2. Recent right total knee arthroplasty July 2018, with ongoing therapies at home, currently walker assist on Coumadin ambulation, physical therapy would be following the patient in the hospital which we have consulted for both PT OT 3. BPH without lower tract symptomatology next 4. Hypertension currently on Lopressor 25 mg twice a day and Demadex 10 Tuesday and Tuesday amlodipine 2.5 mg twice a day no changes were made 5. Vascular dementia stable on anticholinesterase inhibition continue Aricept 6. Elevated troponin, acute coronary syndrome ruled out by cardiology. Cardiology consult is appreciated. Echocardiogram as above. 7. CKD stage II, with mild azotemia mild dehydration secondary to poor oral intake, IV fluids for hydration and monitor labs 8. Debility with recent right total knee arthroplasty, continue on physical therapy which was requested following risk 9. GI prophylaxis and DVT prophylaxis early ambulation and Pepcid oral 10. Mild dependent edema, no change in Demadex, provide adequate nutrition at this time, expect resolution of malnutrition over the next few days 11. Mild protein calorie malnutrition secondary to acute illness influenza A Discharge plan: [place] on Tuesday under the care of Dr. Burns Impression and plan of care have been directed as dictated by the signing physician. Alena Howard nurse practitioner acting as scribe for signing physician.
[2018-10-14] MEDS: DONEPEZIL 10 MG TAB PO SCH (20:22)
[2018-10-15] MEDS: LISINOPRIL 20 MG TAB PO SCH ×2 (07:44→20:14)
[2018-10-15] MEDS: FERROUS SULFATE 325 MG TAB PO SCH ×2 (07:44→20:14)
[2018-10-15] MEDS: DOCUSATE 100 MG CAP PO SCH ×2 (07:45→20:14)
[2018-10-15] MEDS: METOPROLOL TARTRATE 12.5 MG TAB PO SCH ×2 (07:45→20:14)
[2018-10-15] MEDS: amLODIPine 2.5 MG TAB PO SCH ×2 (07:45→20:14)
[2018-10-15] MEDS: TAMSULOSIN 0.4 MG CAP.ER.24H PO SCH (07:45)
[2018-10-15] MEDS: ACETAMINOPHEN TAB 325 MG TAB PO PRN ×2 (07:50→20:19)
--- NOTE | 2018-10-15 10:04 | P.PN ---
Subjective Progress Note Date: 10/15/18 This is a pleasant 83-year-old gentleman patient of Dr. Burns he has underlying history of glaucoma hypertension, chronic dependent edema and short-term memory loss with vascular dementia, osteoarthritis recently underwent right total knee arthroplasty in July 2018 and was doing well with home therapies. Patient was subsequently seen in emergency room after he felt weak for the past 2 days 3 days, along with low-grade fever, upper respiratory type symptoms, decreased appetite, patient has increasing difficulty in supporting himself, he was subsequently seen in the emergency room with studies significant for influenza A urinalysis is negative except for hyaline cast troponins are mildly elevated 0.09 and 0.087, albumin low at 3.3, creatinine of 0.9 to sodium 141 hemoglobin of 10.1 WBC count of 7.1. Chest x-ray shows cardiomegaly with CAD, no pleural effusion, no pneumonia cardiac silhouette is enlarged diffuse idiopathic skeletal hyperostosis 10/12: Patient has been evaluated by cardiology and elevated troponins are not consistent with acute myocardial ischemia but may consider stress test after influenza has resolved. Echocardiogram reveals EF of 55-60%, mild concentric left ventricular hypertrophy, mild aortic valve sclerosis, mild mitral regurgitation, mild tricuspid regurgitation. Patient is very tired today. He does have a congestive sounding cough. We will plan to obtain a chest x-ray, add incentive spirometry and monitor overnight. PT and OT evaluation and treatment ordered. 10/13: Patient is more alert today but still tired and not back to his baseline. Chest x-ray done yesterday showed no acute cardio pulmonary disease. He has been afebrile. PT has recommended subacute rehab or assisted living with 24- hour supervision. Patient is currently in the independent side of [facility]. Discussed discharge planning and family would like to have him go to subacute rehab. senior technical program manager has been updated. Heart rate is running 48-61 and Lopressor will be decreased to 12.5 mg twice daily, blood pressure 101/52, pulse ox 95% on room air. Cardiology has signed off and following as needed only. White count is 8.9, hemoglobin 10.8, electrolytes within normal limits, creatinine 0.88. Anticipate discharge to [facility] on Tuesday. 10/14: Patient is resting comfortable in bed. He has been up and around his room with assistance and his walker. Discharge is planned on Tuesday to [facility]. Discussed with patient discharge plan which he was agreeable to. Patient states that he is starting to feel better and his strength is slowly improving. He denies any complaints at this time denies fever or chills. WBC 8.6, hemoglobin 11.1, potassium 4.1, BUN 22, creatinine 1.04. 10/15: Patient is resting completely in bed. He seems a bit more confused today than yesterday. He is alert to self but unsure where he is at. Patient can recall that he lives at home in an apartment by himself. Patient was unsure why he was at the hospital. Patient has been up and around in the room with assistance and walker. Patient has been afebrile. does not have any complaints at this time. Denies any fever or chills We anticipate discharge to [facility] on Tuesday. Review Of Systems: Constitutional: No fever, no chills, no night sweats. No weight change. Reports weakness, no fatigue or lethargy. No daytime sleepiness. EENT: No headache. No blurred vision or double vision, no loss of vision. No loss of Hearing, no ringing in the ears, no dizziness. No nasal drainage or congestion. No epistaxis. No sore throat. Lungs: No shortness of breath, cough, no sputum production. No wheezing. Cardiovascular: No chest pain, no lower extremity edema. No palpitations. No paroxysmal nocturnal dyspnea. No orthopnea. No lightheadedness or dizziness. No syncopal episodes. Abdominal: no abdominal discomfort. No nausea, vomiting. no diarrhea. No constipation. No bloody or tarry stools. improved loss of appetite. Genitourinary: No dysuria, No frequency or urgency. No urinary retention. Musculoskeletal: No myalgias. No muscle weakness, no gait dysfunction, no frequent falls. No back pain. No neck pain. Integumentary: No wounds, no lesions. No rash or pruritus. No unusual bruising. No change in hair or nails. Neurologic: No aphasia. No facial droop. No change in mentation. No head injury. No headache. No paralysis. No paresthesia. Psychiatric: No depression. No anxiety. No mood swings. Endocrine: No abnormal blood sugars. No weight change. No excessive sweating or thirst. Objective - Vital Signs Vital signs: Vital Signs Temp 97.9 F 10/15/18 07:52 Pulse 81 10/15/18 07:52 Resp 18 10/15/18 07:52 BP 140/61 10/15/18 07:52 Pulse Ox 94 L 10/15/18 07:52 Intake & Output 10/14/18 10/15/18 10/15/18 18:59 06:59 18:59 Intake Total 160 240 160 Output Total 300 Balance -140 240 160 Weight 66 kg Intake: Oral 160 240 160 Output: Urine 300 Other: Voiding Method Toilet Toilet Urinal Urinal Diaper Diaper # Voids 2 1 # Bowel Movements 1 - Exam Gen: This is an 83-year-old male in no acute distress HEENT: Head is atraumatic, normocephalic. Pupils equal, round. Sclerae is anicteric. NECK: Supple. No JVD. No lymphadenopathy. No thyromegaly. LUNGS: Clear to auscultation. No wheezes or rhonchi. No intercostal retractions. HEART: Regular rate and rhythm. No murmur. ABDOMEN: Soft. Bowel sounds are present. No masses. No tenderness. EXTREMITIES: No pedal edema. No calf tenderness. NEUROLOGICAL: Patient is awake, alert and oriented x2. Alert to self and time. Cranial nerves 2 through 12 are grossly intact. - Labs CBC & Chem 7: 10/14/18 06:00 10/14/18 06:00 Labs: Microbiology - Last 24 Hours (Table) 10/10/18 12:24 Blood Culture - Preliminary Blood No Growth after 96 hours Assessment and Plan Plan: 1. Metabolic encephalopathy with influenza A infection, accompanied by anorexia and dehydration, and upper*infection without pneumonia, without hypoxemia patient currently is receiving Tamiflu at normal renal function GFR of 77 for the next 5 days. Incentive spirometry continued. 2. Recent right total knee arthroplasty July 2018, with ongoing therapies at home, currently walker assist on Coumadin ambulation, physical therapy would be following the patient in the hospital which we have consulted for both PT OT 3. BPH without lower tract symptomatology next 4. Hypertension currently on Lopressor 25 mg twice a day and Demadex 10 Tuesday and Tuesday amlodipine 2.5 mg twice a day no changes were made 5. Vascular dementia stable on anticholinesterase inhibition continue Aricept 6. Elevated troponin, acute coronary syndrome ruled out by cardiology. Cardiology consult is appreciated. Echocardiogram as above. 7. CKD stage II, with mild azotemia mild dehydration secondary to poor oral intake, IV fluids for hydration and monitor labs 8. Debility with recent right total knee arthroplasty, continue on physical therapy which was requested following risk 9. GI prophylaxis and DVT prophylaxis early ambulation and Pepcid oral 10. Mild dependent edema, no change in Demadex, provide adequate nutrition at this time, expect resolution of malnutrition over the next few days 11. Mild protein calorie malnutrition secondary to acute illness influenza A Discharge plan: [place] on Tuesday under the care of Dr. Burns Impression and plan of care have been directed as dictated by the signing physician. Alena Howard nurse practitioner acting as scribe for signing physician.
[2018-10-15] MEDS: DONEPEZIL 10 MG TAB PO SCH (20:14)
--- NOTE | 2018-10-16 08:02 | P.DS ---
Providers Date of admission: 10/10/18 16:26 Expected date of discharge: 10/16/18 Attending physician: Megan Valenzuela Consults: 10/10/18 18:25 Consult Physician Routine Consulting Provider: Balbir Ye Consult Reason/Comments: ST depression/elevated trops Do you want consulting provider notified?: Yes Primary care physician: Laurent Burns Hospital Course: This is a pleasant 83-year-old gentleman patient of Dr. Burns he has underlying history of glaucoma hypertension, chronic dependent edema and short-term memory loss with vascular dementia, osteoarthritis recently underwent right total knee arthroplasty in July 2018 and was doing well with home therapies. Patient was subsequently seen in emergency room after he felt weak for the past 2 days 3 days, along with low-grade fever, upper respiratory type symptoms, decreased appetite, patient has increasing difficulty in supporting himself, he was subsequently seen in the emergency room with studies significant for influenza A urinalysis is negative except for hyaline cast troponins are mildly elevated 0.09 and 0.087, albumin low at 3.3, creatinine of 0.9 to sodium 141 hemoglobin of 10.1 WBC count of 7.1. Chest x-ray shows cardiomegaly with CAD, no pleural effusion, no pneumonia cardiac silhouette is enlarged diffuse idiopathic skeletal hyperostosis 10/12: Patient has been evaluated by cardiology and elevated troponins are not consistent with acute myocardial ischemia but may consider stress test after influenza has resolved. Echocardiogram reveals EF of 55-60%, mild concentric left ventricular hypertrophy, mild aortic valve sclerosis, mild mitral regurgitation, mild tricuspid regurgitation. Patient is very tired today. He does have a congestive sounding cough. We will plan to obtain a chest x-ray, add incentive spirometry and monitor overnight. PT and OT evaluation and treatment ordered. 10/13: Patient is more alert today but still tired and not back to his baseline. Chest x-ray done yesterday showed no acute cardio pulmonary disease. He has been afebrile. PT has recommended subacute rehab or assisted living with 24- hour supervision. Patient is currently in the independent side of [facility]. Discussed discharge planning and family would like to have him go to subacute rehab. call or contact centre manager has been updated. Heart rate is running 48-61 and Lopressor will be decreased to 12.5 mg twice daily, blood pressure 101/52, pulse ox 95% on room air. Cardiology has signed off and following as needed only. White count is 8.9, hemoglobin 10.8, electrolytes within normal limits, creatinine 0.88. Anticipate discharge to [facility] on Tuesday. 10/14: Patient is resting comfortable in bed. He has been up and around his room with assistance and his walker. Discharge is planned on Tuesday to [facility]. Discussed with patient discharge plan which he was agreeable to. Patient states that he is starting to feel better and his strength is slowly improving. He denies any complaints at this time denies fever or chills. WBC 8.6, hemoglobin 11.1, potassium 4.1, BUN 22, creatinine 1.04. 10/15: Patient is resting completely in bed. He seems a bit more confused today than yesterday. He is alert to self but unsure where he is at. Patient can recall that he lives at home in an apartment by himself. Patient was unsure why he was at the hospital. Patient has been up and around in the room with assistance and walker. Patient has been afebrile. does not have any complaints at this time. Denies any fever or chills We anticipate discharge to [facility] on Tuesday. 10/16: temperature max 100.2, pulse ox 91% on room air, blood pressure is running on the low side and 93/51, heart rate running between 60 and 80. Blood pressure medications will be adjusted due to hypotension. Patient will be discharged to [facility] at once all arrangements have been completed. Discharge diagnoses: 1. Metabolic encephalopathy with influenza A infection, accompanied by anorexia and dehydration, and upper*infection without pneumonia 2. Recent right total knee arthroplasty July 2018, 3. BPH without lower tract symptomatology 4. Hypertension 5. Vascular dementia 6. Elevated troponin, acute coronary syndrome ruled out by cardiology. 7. KATHY with CKD stage II 8. Debility with recent right total knee arthroplasty 9. Mild dependent edema 10. Mild protein calorie malnutrition secondary to acute influenza A Discharge plan: Most likely return home to [facility] with [facility]. Impression and plan of care have been directed as dictated by the signing physician. Tamara Mendez nurse practitioner acting as scribe for signing physician. Patient Condition at Discharge: Good Plan - Discharge Summary Discharge Rx Participant: No New Discharge Prescriptions: New Metoprolol Tartrate [Lopressor] 12.5 mg PO BID tab Continue Multivitamins, Thera [Multivitamin (formulary)] 1 tab PO DAILY Torsemide [Demadex] 10 mg PO MOWEFRSA Ergocalciferol [Vitamin D2 (DRISDOL)] 50,000 unit PO Q14D Potassium Chloride [K-Tab ER] 10 meq PO MOFR Acetaminophen [Tylenol Extra Strength] 1,000 mg PO BID Aricept 23mg 23 mg PO HS Docusate [Colace] 100 mg PO BID #60 capsule Tamsulosin [Flomax] 0.4 mg PO PC-[id number] cap.er.24h Ferrous Sulfate [Feosol] 325 mg PO BID Loratadine [Claritin] 10 mg PO DAILY Aspirin 325 mg PO HS Changed Enalapril Maleate [Vasotec] 5 mg PO BID #0 Discontinued amLODIPine [Norvasc] 2.5 mg PO BID Metoprolol Tartrate [Lopressor] 25 mg PO BID Discharge Medication List Acetaminophen [Tylenol Extra Strength] 1,000 mg PO BID 07/07/18 [History] Ergocalciferol [Vitamin D2 (DRISDOL)] 50,000 unit PO Q14D 07/07/18 [History] Multivitamins, Thera [Multivitamin (formulary)] 1 tab PO DAILY 07/07/18 [History ] Potassium Chloride [K-Tab ER] 10 meq PO MOFR 07/07/18 [History] Torsemide [Demadex] 10 mg PO MOWEFRSA 07/07/18 [History] Aricept 23mg 23 mg PO HS 07/27/18 [History] Docusate [Colace] 100 mg PO BID #60 capsule 07/28/18 [Rx] Tamsulosin [Flomax] 0.4 mg PO PC-BRKFST cap.er.24h 07/28/18 [Rx] Aspirin 325 mg PO HS 10/10/18 [History] Ferrous Sulfate [Feosol] 325 mg PO BID 10/10/18 [History] Loratadine [Claritin] 10 mg PO DAILY 10/10/18 [History] Enalapril Maleate [Vasotec] 5 mg PO BID #0 10/16/18 [Rx] Metoprolol Tartrate [Lopressor] 12.5 mg PO BID tab 10/16/18 [Rx] Follow up Appointment(s)/Referral(s): Laurent Burns MD [Primary Care Provider] - 1 Week (at [facility]) Activity/Diet/Wound Care/Special Instructions: Patient has completed course of Tamiflu October 10 through October 14 [facility] Discharge Disposition: TRANSFER TO SNF/ECF
[2018-10-16 08:06] VITALS: PULSE 61; RESP 16
[2018-10-16] MEDS: TAMSULOSIN 0.4 MG CAP.ER.24H PO SCH (09:06)
[2018-10-16] MEDS: DOCUSATE 100 MG CAP PO SCH (09:06)
[2018-10-16] MEDS: POTASSIUM CHLORIDE ER 10 MEQ TAB.ER.PRT PO SCH (09:06)
[2018-10-16] MEDS: LISINOPRIL 20 MG TAB PO SCH (09:06)
[2018-10-16] MEDS: FERROUS SULFATE 325 MG TAB PO SCH (09:06)
[2018-10-16] MEDS: METOPROLOL TARTRATE 12.5 MG TAB PO SCH (09:06)
[2018-10-16] MEDS: TORSEMIDE 20 MG TAB PO SCH (09:07)
[2018-10-16] MEDS: amLODIPine 2.5 MG TAB PO SCH (09:07)
[2018-10-16] MEDS: ACETAMINOPHEN TAB 325 MG TAB PO PRN (09:11)
[2018-10-16 11:37] VITALS: BP 101/53; TEMP 96.5
[2018-10-16] MEDS ORDERED: LISINOPRIL 10 MG TAB PO SCH (21:00)
== END 2018-10-16 15:56 | DRG 193 ==
LOC: EC 11:17 → 3SCARD 16:26 → 4MS4W 10-15 13:56
PROVIDERS: ADMIT Family Medicine; ATTEND Family Medicine
DX: J10.1 Influenza due to other identified influenza virus with other respiratory manifestations (principal); G93.41 Metabolic encephalopathy; E44.1 Mild protein-calorie malnutrition; I13.0 Hypertensive heart and chronic kidney disease with heart failure and stage 1 through stage 4 chronic kidney disease, or unspecified chronic kidney disease; N17.9 Acute kidney failure, unspecified; I50.22 Chronic systolic (congestive) heart failure; E86.0 Dehydration; N40.0 Benign prostatic hyperplasia without lower urinary tract symptoms; F01.50 Vascular dementia, unspecified severity, without behavioral disturbance, psychotic disturbance, mood disturbance, and anxiety; J44.9 Chronic obstructive pulmonary disease, unspecified; I12.9 Hypertensive chronic kidney disease with stage 1 through stage 4 chronic kidney disease, or unspecified chronic kidney disease; N18.2 Chronic kidney disease, stage 2 (mild); Z96.651 Presence of right artificial knee joint; R53.81 Other malaise; I08.3 Combined rheumatic disorders of mitral, aortic and tricuspid valves; I25.10 Atherosclerotic heart disease of native coronary artery without angina pectoris; J10.81 Influenza due to other identified influenza virus with encephalopathy; I44.7 Left bundle-branch block, unspecified; I25.5 Ischemic cardiomyopathy; Z68.21 Body mass index [BMI] 21.0-21.9, adult; Z98.42 Cataract extraction status, left eye; Z98.41 Cataract extraction status, right eye; Z87.891 Personal history of nicotine dependence; Z79.899 Other long term (current) drug therapy; Z88.2 Allergy status to sulfonamides; Z95.810 Presence of automatic (implantable) cardiac defibrillator
CPT/HCPCS: 36415; 71046; 80048; 80053; 81001; 83605; 84484; 85025; 85610; 85730; 87040; 87086; 87502; 93005; 93306; 99285

== ENCOUNTER 2020-03-06 15:35 | Emergency (ER) | payer MEDICARE ==
[2020-03-06 15:41] VITALS: TEMP 98.1
[2020-03-06] MEDS ORDERED: SODIUM CHLORIDE 0.9% 500 ML 500 ML IV ONE (16:00)
--- NOTE | 2020-03-06 16:33 | XR ---
EXAMINATION TYPE: XR chest 2V DATE OF EXAM: 03/06/2020 COMPARISON: 10/10/2018 HISTORY: 84-year-old male confusion, altered mental status TECHNIQUE: AP and lateral views FINDINGS: Heart borderline enlarged. Aorta and pulmonary vasculature within normal limits. Mild interstitial pr ominence is unchanged. No consolidation or pleural effusion. IMPRESSION: Borderline heart size. Chronic changes without definite acute process.
[2020-03-06 16:45] LABS: Basophils % (A) 1 %; Eosinophils # (A) 0.5 k/uL (0-0.7); Eosinophils % (A) 6 %; HCT 39.8 % (39.0-53.0); HGB 12.9 gm/dL (13.0-17.5); Lymphocytes # (A) 2.2 k/uL (1.0-4.8); Lymphocytes % (A) 27 %; MCH 32.3 pg (25.0-35.0); MCHC 32.5 g/dL (31.0-37.0); MCV 99.5 fL (80.0-100.0); Monocytes # (A) 0.5 k/uL (0-1.0); Monocytes % (A) 6 %; Neutrophils # (A) 4.8 k/uL (1.3-7.7); Neutrophils % (A) 58 %; Platelet Count 250 k/uL (150-450); RDW 12.6 % (11.5-15.5); WBC 8.3 k/uL (3.8-10.6)
--- NOTE | 2020-03-06 16:46 | ED ---
General Adult HPI - General Chief complaint: Recheck/Abnormal Lab/Rx Stated complaint: poss UTI Time Seen by Provider: 03/06/20 15:40 Source: patient, EMS, RN notes reviewed, old records reviewed Mode of arrival: EMS Limitations: altered mental status - History of Present Illness Initial comments: This is a 61-year-old male who presents emergency department from [facility]. He was sent in by to her because he is become aggressive with staff is refusing to take his medications and is trying to leave the facility. Patient cannot give any history but he does deny any pain I do not know how accurate that is he does not know his age or the hospital or the year. Patient does deny headache patient denies chest pain difficulty breathing shortness of breath patient denies abdominal pain patient denies nausea vomiting or diarrhea. Patient states he has no idea why he is here - Related Data Home Medications Medication Instructions Recorded Confirmed Acetaminophen [Tylenol Extra 1,000 mg PO BID 07/07/18 10/10/18 Strength] Ergocalciferol [Vitamin D2 50,000 unit PO Q14D 07/07/18 10/10/18 (DRISDOL)] Multivitamins, Thera [Multivitamin 1 tab PO DAILY 07/07/18 10/10/18 (formulary)] Potassium Chloride [K-Tab ER] 10 meq PO MOFR 07/07/18 10/10/18 Torsemide [Demadex] 10 mg PO MOWEFRSA 07/07/18 10/10/18 Aricept 23mg 23 mg PO HS 07/27/18 10/10/18 Aspirin 325 mg PO HS 10/10/18 10/10/18 Ferrous Sulfate [Feosol] 325 mg PO BID 10/10/18 10/10/18 Loratadine [Claritin] 10 mg PO DAILY 10/10/18 10/10/18 Previous Rx's Medication Instructions Recorded Docusate [Colace] 100 mg PO BID #60 capsule 07/28/18 Tamsulosin [Flomax] 0.4 mg PO [id number] cap.er.24h 07/28/18 Enalapril Maleate [Vasotec] 5 mg PO BID #0 10/16/18 Metoprolol Tartrate [Lopressor] 12.5 mg PO BID tab 10/16/18 Allergies Allergy/AdvReac Type Severity Reaction Status Date / Time Sulfa (Sulfonamide Allergy Unknown Verified 10/10/18 11:44 Antibiotics) Childhood Review of Systems ROS Statement: Those systems with pertinent positive or pertinent negative responses have been documented in the HPI. ROS Other: All systems not noted in ROS Statement are negative. Past Medical History Past Medical History: Eye Disorder, Hypertension, Memory Impairment, Osteoarthritis (OA) Additional Past Medical History / Comment(s): HX GLAUCOMA. HX EDEMA ANKLES. SHORT TERM MEMORY LOSS, "VASCULAR DEMENTIA, PER DRRoyal" History of Any Multi-Drug Resistant Organisms: None Reported Additional Past Surgical History / Comment(s): NASAL PROCEDURE. CATARACTS STANISLAW. GLAUCOMA SURGERY STANISLAW Past Anesthesia/Blood Transfusion Reactions: No Reported Reaction Past Psychological History: No Psychological Hx Reported Smoking Status: Former smoker Past Alcohol Use History: Daily Past Drug Use History: None Reported - Past Family History Father Family Medical History: Cancer Additional Family Medical History / Comment(s): PROSTATE General Exam - General Exam Comments Initial Comments: GENERAL: Patient is well-developed and well-nourished. Patient is nontoxic and well- hydrated and is in no acute distress. ENT: Neck is soft and supple. No significant lymphadenopathy is noted. Oropharynx is clear. Moist mucous membranes. Neck has full range of motion without eliciting any pain. EYES: The sclera were anicteric and conjunctiva were pink and moist. Extraocular movements were intact and pupils were equal round and reactive to light. Eyelids were unremarkable. PULMONARY: Unlabored respirations. Good breath sounds bilaterally. No audible rales rhonchi or wheezing was noted. CARDIOVASCULAR: There is a regular rate and rhythm without any murmurs gallops or rubs. ABDOMEN: Soft and nontender with normal bowel sounds. SKIN: Skin is clear with no lesions or rashes and otherwise unremarkable. NEUROLOGIC: Patient is alert and oriented x3. Cranial nerves II through XII are grossly intact. Motor and sensory are also intact. Normal speech, volume and content. Symmetrical smile. MUSCULOSKELETAL: Normal extremities with adequate strength and full range of motion. LYMPHATICS: No significant lymphadenopathy is noted PSYCHIATRIC: Normal psychiatric evaluation. Limitations: altered mental status Course Vital Signs 03/06/20 03/06/20 03/06/20 15:38 16:00 16:30 Temperature 98.1 F Pulse Rate 48 L 45 L 48 L Respiratory 18 17 11 L Rate Blood Pressure 136/57 136/57 147/59 O2 Sat by Pulse 98 97 Oximetry 03/06/20 17:00 Temperature Pulse Rate 41 L Respiratory 16 Rate Blood Pressure 141/59 O2 Sat by Pulse Oximetry Medical Decision Making - Medical Decision Making EKG shows sinus bradycardia at 40 bpm KS interval 280 QRS on a 52 QT interval is 45 QTC is 450. Patient's EKG shows a left bundle branch block. I'll back into multiple times to reevaluate the patient he was comfortable and had no complaints at any time. After all labs came back I spoke with Dr. Burns he agreed to follow-up the patient as an outpatient. - Lab Data Result diagrams: 03/06/20 16:30 03/06/20 16:30 Lab Results 03/06/20 03/06/20 03/06/20 Range/Units 16:30 16:30 16:30 WBC 8.3 (3.8-10.6) k/uL RBC 4.00 L (4.30-5.90) m/uL Hgb 12.9 L (13.0-17.5) gm/dL Hct 39.8 (39.0-53.0) % MCV 99.5 (80.0-100.0) fL MCH 32.3 (25.0-35.0) pg MCHC 32.5 (31.0-37.0) g/dL RDW 12.6 (11.5-15.5) % Plt Count 250 (150-450) k/uL Neutrophils % 58 % Lymphocytes % 27 % Monocytes % 6 % Eosinophils % 6 % Basophils % 1 % Neutrophils # 4.8 (1.3-7.7) k/uL Lymphocytes # 2.2 (1.0-4.8) k/uL Monocytes # 0.5 (0-1.0) k/uL Eosinophils # 0.5 (0-0.7) k/uL Basophils # 0.0 (0-0.2) k/uL PT 10.4 (9.0-12.0) sec INR 1.0 (<1.2) APTT 23.3 (22.0-30.0) sec Sodium 137 (137-145) mmol/L Potassium 4.5 (3.5-5.1) mmol/L Chloride 103 (98-107) mmol/L Carbon Dioxide 25 (22-30) mmol/L Anion Gap 9 mmol/L BUN 21 H (9-20) mg/dL Creatinine 1.20 (0.66-1.25) mg/dL Est GFR (CKD-EPI)AfAm 64 (>60 ml/min/1.73 sqM) Est GFR (CKD-EPI)NonAf 55 (>60 ml/min/1.73 sqM) Glucose 99 (74-99) mg/dL Calcium 9.1 (8.4-10.2) mg/dL Total Bilirubin 0.5 (0.2-1.3) mg/dL AST 29 (17-59) U/L ALT 15 (4-49) U/L Alkaline Phosphatase 61 (38-126) U/L Troponin I (0.000-0.034) ng/mL Total Protein 6.9 (6.3-8.2) g/dL Albumin 4.1 (3.5-5.0) g/dL Urine Color Urine Appearance (Clear) Urine pH (5.0-8.0) Ur Specific [place] (1.001-1.035) Urine Protein (Negative) Urine Glucose (UA) (Negative) Urine Ketones (Negative) Urine Blood (Negative) Urine Nitrite (Negative) Urine Bilirubin (Negative) Urine Urobilinogen (<2.0) mg/dL Ur Leukocyte Esterase (Negative) Urine Opiates Screen (NotDetected) Ur Oxycodone Screen (NotDetected) Urine Methadone Screen (NotDetected) Ur Propoxyphene Screen (NotDetected) Ur Barbiturates Screen (NotDetected) U Tricyclic Antidepress (NotDetected) Ur Phencyclidine Scrn (NotDetected) Ur Amphetamines Screen (NotDetected) U Methamphetamines Scrn (NotDetected) U Benzodiazepines Scrn (NotDetected) Urine Cocaine Screen (NotDetected) U Marijuana (THC) Screen (NotDetected) 03/06/20 03/06/20 Range/Units 16:30 17:45 WBC (3.8-10.6) k/uL RBC (4.30-5.90) m/uL Hgb (13.0-17.5) gm/dL Hct (39.0-53.0) % MCV (80.0-100.0) fL MCH (25.0-35.0) pg MCHC (31.0-37.0) g/dL RDW (11.5-15.5) % Plt Count (150-450) k/uL Neutrophils % % Lymphocytes % % Monocytes % % Eosinophils % % Basophils % % Neutrophils # (1.3-7.7) k/uL Lymphocytes # (1.0-4.8) k/uL Monocytes # (0-1.0) k/uL Eosinophils # (0-0.7) k/uL Basophils # (0-0.2) k/uL PT (9.0-12.0) sec INR (<1.2) APTT (22.0-30.0) sec Sodium (137-145) mmol/L Potassium (3.5-5.1) mmol/L Chloride (98-107) mmol/L Carbon Dioxide (22-30) mmol/L Anion Gap mmol/L BUN (9-20) mg/dL Creatinine (0.66-1.25) mg/dL Est GFR (CKD-EPI)AfAm (>60 ml/min/1.73 sqM) Est GFR (CKD-EPI)NonAf (>60 ml/min/1.73 sqM) Glucose (74-99) mg/dL Calcium (8.4-10.2) mg/dL Total Bilirubin (0.2-1.3) mg/dL AST (17-59) U/L ALT (4-49) U/L Alkaline Phosphatase (38-126) U/L Troponin I <0.012 (0.000-0.034) ng/mL Total Protein (6.3-8.2) g/dL Albumin (3.5-5.0) g/dL Urine Color Yellow Urine Appearance Clear (Clear) Urine pH 5.5 (5.0-8.0) Ur Specific [place] 1.023 (1.001-1.035) Urine Protein Trace H (Negative) Urine Glucose (UA) Negative (Negative) Urine Ketones 1+ H (Negative) Urine Blood Negative (Negative) Urine Nitrite Negative (Negative) Urine Bilirubin Negative (Negative) Urine Urobilinogen 3.0 (<2.0) mg/dL Ur Leukocyte Esterase Negative (Negative) Urine Opiates Screen Not Detected (NotDetected) Ur Oxycodone Screen Not Detected (NotDetected) Urine Methadone Screen Not Detected (NotDetected) Ur Propoxyphene Screen Not Detected (NotDetected) Ur Barbiturates Screen Not Detected (NotDetected) U Tricyclic Antidepress Not Detected (NotDetected) Ur Phencyclidine Scrn Not Detected (NotDetected) Ur Amphetamines Screen Not Detected (NotDetected) U Methamphetamines Scrn Not Detected (NotDetected) U Benzodiazepines Scrn Not Detected (NotDetected) Urine Cocaine Screen Not Detected (NotDetected) U Marijuana (THC) Screen Not Detected (NotDetected) Disposition Clinical Impression: Dementia Disposition: HOME SELF-CARE Condition: Good Instructions (If sedation given, give patient instructions): Dementia (ED) Is patient prescribed a controlled substance at d/c from ED?: No Referrals: Laurent Burns MD [Primary Care Provider] - 1-2 days Time of Disposition: 18:33
[2020-03-06 16:59] LABS: Partial Thromboplastin Time 23.3 sec (22.0-30.0); Prothrombin Time 10.4 sec (9.0-12.0)
[2020-03-06 17:02] LABS: Albumin 4.1 g/dL (3.5-5.0); Calcium 9.1 mg/dL (8.4-10.2); Potassium 4.5 mmol/L (3.5-5.1); Total Bilirubin 0.5 mg/dL (0.2-1.3); Total Protein 6.9 g/dL (6.3-8.2)
[2020-03-06 18:13] LABS: Appearance,Urine Clear (Clear); Bilirubin,Urine Negative (Negative); Blood,Urine Negative (Negative); Color,Urine Yellow; Glucose,Urine (UA) Negative (Negative); Ketones,Urine 1+ (Negative); Leukocyte Esterase,Urine Negative (Negative); Nitrite,Urine Negative (Negative); PH, Urine 5.5 (5.0-8.0); Protein,Urine Trace (Negative); Specific Gravity,Urine 1.023 (1.001-1.035)
[2020-03-06 18:23] LABS: Amphetamine Screen,Urine Not Detected (NotDetected); Barbiturate Screen,Urine Not Detected (NotDetected); Benzodiazepines Screen,Urine Not Detected (NotDetected); Cocaine Screen,Urine Not Detected (NotDetected); Methadone Screen, Urine Not Detected (NotDetected); Opiate Screen,Urine Not Detected (NotDetected); Oxycodone Screen, Urine Not Detected (NotDetected); Phencyclidine Screen,Urine Not Detected (NotDetected); Tricyclic Antidepressant,Urine Not Detected (NotDetected); Urn Cannabinoid Scrn Not Detected (NotDetected)
[2020-03-06 18:49] VITALS: BP 165/88; PULSE 48; RESP 18
== END 2020-03-06 19:34 | disposition home or self-care (01) ==
LOC: EC 15:35
DX: F03.90 Unspecified dementia, unspecified severity, without behavioral disturbance, psychotic disturbance, mood disturbance, and anxiety (principal); R00.1 Bradycardia, unspecified; I44.7 Left bundle-branch block, unspecified; I10 Essential (primary) hypertension; M19.90 Unspecified osteoarthritis, unspecified site; Z79.899 Other long term (current) drug therapy; Z79.82 Long term (current) use of aspirin; Z88.2 Allergy status to sulfonamides; Z87.891 Personal history of nicotine dependence
CPT/HCPCS: 36415; 71046; 80053; 80306; 81003; 84484; 85025; 85610; 85730; 93005; 96360; 99285

== ENCOUNTER 2020-03-19 10:35 | Emergency (ER) | payer MEDICARE ==
[2020-03-19 10:44] VITALS: RESP 18; TEMP 98
--- NOTE | 2020-03-19 11:04 | ED ---
General Adult HPI - General Source: patient, EMS, RN notes reviewed, old records reviewed Mode of arrival: EMS Limitations: altered mental status <Thai Landaverde - Last Filed: 03/19/20 13:30> <Willy Little - Last Filed: 03/19/20 15:38> - General Chief complaint: Altered Mental Status Stated complaint: altered mental status Time Seen by Provider: 03/19/20 10:43 - History of Present Illness Initial comments: This an 84-year-old male presents emergency department via EMS from [facility] for evaluation of worsening dementia. Patient reportedly was found hiding in another resident's room. Patient denies this. Patient is awake alert and oriented 1. This is his normal baseline. Patient has no complaints she is agitated with staff. Patient was recently seen for similar symptoms and had 4, which is negative. Patient denies any chest pain, shortness breath no abdominal pain. He states that he was placed at [facility]. (Thai Landaverde) - Related Data Home Medications Medication Instructions Recorded Confirmed Acetaminophen [Tylenol Extra 1,000 mg PO BID 07/07/18 03/19/20 Strength] Ergocalciferol [Vitamin D2 50,000 unit PO Q14D 07/07/18 03/19/20 (DRISDOL)] Multivitamins, Thera [Multivitamin 1 tab PO DAILY 07/07/18 03/19/20 (formulary)] Torsemide [Demadex] 10 mg PO MOWEFRSA 07/07/18 03/19/20 Aricept 23mg 23 mg PO HS 07/27/18 03/19/20 Loratadine [Claritin] 10 mg PO DAILY 10/10/18 03/19/20 Aspirin EC [Ecotrin Low Dose] 81 mg PO HS 03/19/20 03/19/20 Enalapril [Vasotec] 5 mg PO BID 03/19/20 03/19/20 Memantine [Namenda] 10 mg PO BID 03/19/20 03/19/20 Metoprolol Tartrate [Lopressor] 12.5 mg PO BID 03/19/20 03/19/20 Sertraline HCl [Zoloft] 25 mg PO HS 03/19/20 03/19/20 Tamsulosin [Flomax] 0.4 mg PO DAILY 03/19/20 03/19/20 Allergies Allergy/AdvReac Type Severity Reaction Status Date / Time Sulfa (Sulfonamide Allergy Unknown Verified 03/19/20 11:08 Antibiotics) Childhood Review of Systems ROS Other: All systems not noted in ROS Statement are negative. <Thai Landaverde - Last Filed: 03/19/20 13:30> ROS Other: All systems not noted in ROS Statement are negative. <Willy Little - Last Filed: 03/19/20 15:38> ROS Statement: Those systems with pertinent positive or pertinent negative responses have been documented in the HPI. Past Medical History Past Medical History: Eye Disorder, Hypertension, Memory Impairment, Osteoarthritis (OA) Additional Past Medical History / Comment(s): HX GLAUCOMA. HX EDEMA ANKLES. SHORT TERM MEMORY LOSS, "VASCULAR DEMENTIA, PER ." History of Any Multi-Drug Resistant Organisms: None Reported Additional Past Surgical History / Comment(s): NASAL PROCEDURE. CATARACTS STANISLAW. GLAUCOMA SURGERY STANISLAW Past Anesthesia/Blood Transfusion Reactions: No Reported Reaction Past Psychological History: No Psychological Hx Reported Smoking Status: Former smoker Past Alcohol Use History: Daily Past Drug Use History: None Reported - Past Family History Father Family Medical History: Cancer Additional Family Medical History / Comment(s): PROSTATE <Thai Landaverde - Last Filed: 03/19/20 13:30> General Exam Limitations: no limitations General appearance: alert, in no apparent distress Head exam: Present: atraumatic, normocephalic, normal inspection Eye exam: Present: normal appearance, PERRL, EOMI. Absent: scleral icterus, conjunctival injection, periorbital swelling ENT exam: Present: normal exam, normal oropharynx, mucous membranes moist Neck exam: Present: normal inspection, full ROM. Absent: tenderness, meningismus, lymphadenopathy Respiratory exam: Present: normal lung sounds bilaterally. Absent: respiratory distress, wheezes, rales, rhonchi, stridor Cardiovascular Exam: Present: regular rate, normal rhythm, normal heart sounds. Absent: systolic murmur, diastolic murmur, rubs, gallop, clicks GI/Abdominal exam: Present: soft, normal bowel sounds. Absent: distended, tenderness, guarding, rebound, rigid Neurological exam: Present: alert. Absent: oriented X3 Psychiatric exam: Present: agitated Skin exam: Present: warm, dry, intact, normal color. Absent: rash <Thai Landaverde - Last Filed: 03/19/20 13:30> Course <Willy Little - Last Filed: 03/19/20 15:38> Vital Signs 03/19/20 03/19/20 03/19/20 10:38 12:18 13:05 Temperature 98.0 F Pulse Rate 60 55 L 60 Respiratory 18 18 18 Rate Blood Pressure 157/65 161/65 169/86 O2 Sat by Pulse 99 99 99 Oximetry 03/19/20 14:29 Temperature 98.0 F Pulse Rate 55 L Respiratory 18 Rate Blood Pressure 146/55 O2 Sat by Pulse 99 Oximetry - Reevaluation(s) Reevaluation #1: 03/19/20 15:37 PA supervision: I did personally evaluate this patient in case patient presented from a local home for evaluation of worsening dementia the patient's workup that included lab work and the only findings were of evidence of dehydration. Patient will be discharged back to the facility. (Willy Little) Medical Decision Making - Lab Data Result diagrams: 03/19/20 11:21 03/19/20 11:21 <Thai Landaverde - Last Filed: 03/19/20 13:30> - Lab Data Result diagrams: 03/19/20 11:21 03/19/20 11:21 <Willy Little - Last Filed: 03/19/20 15:38> - Medical Decision Making 84-year-old male presented from [facility] for possible worsening dementia. Patient had labs, urinalysis which not reveal any significant abnormality. Patient was recent seen for similar symptoms. Patient has worsening dementia causing his symptoms. Patient will be discharged in stable condition. Was recommended. (Thai Landaverde) - Lab Data Lab Results 03/19/20 03/19/20 03/19/20 Range/Units 11:21 11:21 11:21 WBC 8.6 (3.8-10.6) k/uL RBC 3.77 L (4.30-5.90) m/uL Hgb 12.7 L (13.0-17.5) gm/dL Hct 37.7 L (39.0-53.0) % MCV 100.1 H (80.0-100.0) fL MCH 33.7 (25.0-35.0) pg MCHC 33.7 (31.0-37.0) g/dL RDW 12.5 (11.5-15.5) % Plt Count 228 (150-450) k/uL Neutrophils % 59 % Lymphocytes % 26 % Monocytes % 6 % Eosinophils % 5 % Basophils % 0 % Neutrophils # 5.1 (1.3-7.7) k/uL Lymphocytes # 2.3 (1.0-4.8) k/uL Monocytes # 0.6 (0-1.0) k/uL Eosinophils # 0.5 (0-0.7) k/uL Basophils # 0.0 (0-0.2) k/uL PT 10.5 (9.0-12.0) sec INR 1.0 (<1.2) APTT 20.9 L (22.0-30.0) sec Sodium 141 (137-145) mmol/L Potassium 4.3 (3.5-5.1) mmol/L Chloride 107 (98-107) mmol/L Carbon Dioxide 26 (22-30) mmol/L Anion Gap 8 mmol/L BUN 37 H (9-20) mg/dL Creatinine 1.18 (0.66-1.25) mg/dL Est GFR (CKD-EPI)AfAm 65 (>60 ml/min/1.73 sqM) Est GFR (CKD-EPI)NonAf 56 (>60 ml/min/1.73 sqM) Glucose 94 (74-99) mg/dL Calcium 9.0 (8.4-10.2) mg/dL Total Bilirubin 0.6 (0.2-1.3) mg/dL AST 25 (17-59) U/L ALT 15 (4-49) U/L Alkaline Phosphatase 46 (38-126) U/L Creatine Kinase 88 (55-170) U/L Troponin I (0.000-0.034) ng/mL Total Protein 6.5 (6.3-8.2) g/dL Albumin 3.9 (3.5-5.0) g/dL Urine Color Urine Appearance (Clear) Urine pH (5.0-8.0) Ur Specific [place] (1.001-1.035) Urine Protein (Negative) Urine Glucose (UA) (Negative) Urine Ketones (Negative) Urine Blood (Negative) Urine Nitrite (Negative) Urine Bilirubin (Negative) Urine Urobilinogen (<2.0) mg/dL Ur Leukocyte Esterase (Negative) 03/19/20 03/19/20 Range/Units 11:21 11:44 WBC (3.8-10.6) k/uL RBC (4.30-5.90) m/uL Hgb (13.0-17.5) gm/dL Hct (39.0-53.0) % MCV (80.0-100.0) fL MCH (25.0-35.0) pg MCHC (31.0-37.0) g/dL RDW (11.5-15.5) % Plt Count (150-450) k/uL Neutrophils % % Lymphocytes % % Monocytes % % Eosinophils % % Basophils % % Neutrophils # (1.3-7.7) k/uL Lymphocytes # (1.0-4.8) k/uL Monocytes # (0-1.0) k/uL Eosinophils # (0-0.7) k/uL Basophils # (0-0.2) k/uL PT (9.0-12.0) sec INR (<1.2) APTT (22.0-30.0) sec Sodium (137-145) mmol/L Potassium (3.5-5.1) mmol/L Chloride (98-107) mmol/L Carbon Dioxide (22-30) mmol/L Anion Gap mmol/L BUN (9-20) mg/dL Creatinine (0.66-1.25) mg/dL Est GFR (CKD-EPI)AfAm (>60 ml/min/1.73 sqM) Est GFR (CKD-EPI)NonAf (>60 ml/min/1.73 sqM) Glucose (74-99) mg/dL Calcium (8.4-10.2) mg/dL Total Bilirubin (0.2-1.3) mg/dL AST (17-59) U/L ALT (4-49) U/L Alkaline Phosphatase (38-126) U/L Creatine Kinase (55-170) U/L Troponin I 0.027 (0.000-0.034) ng/mL Total Protein (6.3-8.2) g/dL Albumin (3.5-5.0) g/dL Urine Color Yellow Urine Appearance Clear (Clear) Urine pH 5.5 (5.0-8.0) Ur Specific [place] 1.018 (1.001-1.035) Urine Protein Negative (Negative) Urine Glucose (UA) Negative (Negative) Urine Ketones 1+ H (Negative) Urine Blood Negative (Negative) Urine Nitrite Negative (Negative) Urine Bilirubin Negative (Negative) Urine Urobilinogen 3.0 (<2.0) mg/dL Ur Leukocyte Esterase Negative (Negative) Disposition Is patient prescribed a controlled substance at d/c from ED?: No Time of Disposition: 13:31 <Thai Landaverde - Last Filed: 03/19/20 13:30> <Willy Little - Last Filed: 03/19/20 15:38> Clinical Impression: Dementia, Dehydration Disposition: HOME SELF-CARE Condition: Stable Instructions (If sedation given, give patient instructions): Dementia (ED) Additional Instructions: Please return to the Emergency Department if symptoms worsen or any other concerns. Referrals: Laurent Burns MD [Primary Care Provider] - 1-2 days
[2020-03-19 11:50] LABS: Basophils % (A) 0 %; Eosinophils # (A) 0.5 k/uL (0-0.7); Eosinophils % (A) 5 %; HCT 37.7 % (39.0-53.0); HGB 12.7 gm/dL (13.0-17.5); Lymphocytes # (A) 2.3 k/uL (1.0-4.8); Lymphocytes % (A) 26 %; MCH 33.7 pg (25.0-35.0); MCHC 33.7 g/dL (31.0-37.0); MCV 100.1 fL (80.0-100.0); Mean Platelet Volume 8.4; Monocytes # (A) 0.6 k/uL (0-1.0); Monocytes % (A) 6 %; Neutrophils # (A) 5.1 k/uL (1.3-7.7); Neutrophils % (A) 59 %; Platelet Count 228 k/uL (150-450); RBC 3.77 m/uL (4.30-5.90); RDW 12.5 % (11.5-15.5); WBC 8.6 k/uL (3.8-10.6)
[2020-03-19 12:05] LABS: Albumin 3.9 g/dL (3.5-5.0); Potassium 4.3 mmol/L (3.5-5.1); Total Bilirubin 0.6 mg/dL (0.2-1.3); Total Protein 6.5 g/dL (6.3-8.2)
[2020-03-19 12:07] LABS: Prothrombin Time 10.5 sec (9.0-12.0)
[2020-03-19 12:07] LABS: Appearance,Urine Clear (Clear); Bilirubin,Urine Negative (Negative); Blood,Urine Negative (Negative); Color,Urine Yellow; Glucose,Urine (UA) Negative (Negative); Ketones,Urine 1+ (Negative); Leukocyte Esterase,Urine Negative (Negative); Nitrite,Urine Negative (Negative); PH, Urine 5.5 (5.0-8.0); Protein,Urine Negative (Negative); Specific Gravity,Urine 1.018 (1.001-1.035)
[2020-03-19 12:11] LABS: Partial Thromboplastin Time 20.9 sec (22.0-30.0)
--- NOTE | 2020-03-19 12:50 | XR ---
EXAMINATION TYPE: XR chest 2V DATE OF EXAM: 03/19/2020 COMPARISON: 03/06/2020 TECHNIQUE: PA and lateral views submitted. HISTORY: Altered mental status FINDINGS: The lungs are clear and there is no pneumothorax, pleural effusion, or focal pneumonia. Hyperinflat ion suggests COPD. Diffuse osteopenia and arthropathy of the shoulders. No overt failure. Hypertrophi c and degenerative change of the spine. IMPRESSION: 1. No acute process. Correlate for COPD.
[2020-03-19 14:31] VITALS: BP 146/55; PULSE 55
== END 2020-03-19 15:34 | disposition home or self-care (01) ==
LOC: EC 10:35
DX: F03.90 Unspecified dementia, unspecified severity, without behavioral disturbance, psychotic disturbance, mood disturbance, and anxiety (principal); E86.0 Dehydration; I10 Essential (primary) hypertension; M19.90 Unspecified osteoarthritis, unspecified site; Z79.899 Other long term (current) drug therapy; Z79.82 Long term (current) use of aspirin; Z88.2 Allergy status to sulfonamides; Z98.42 Cataract extraction status, left eye; Z98.41 Cataract extraction status, right eye; Z87.891 Personal history of nicotine dependence
CPT/HCPCS: 36415; 71046; 80053; 81003; 82550; 84484; 85025; 85610; 85730; 99285